=== PATIENT | male | born 1950 | race Caucasian/White ===

== ENCOUNTER 2018-08-09 11:20 | Emergency (ER) | payer MEDICARE, OTHER ==
[~2018-08-09] VITALS: Ht 182.9 cm; Wt 74.8 kg
[~2018-08-09 11:20] MED LIST: ALBU90OI61 INH; ASPI81CH PO; ATOR40TA PO; ATOR80 PO; Adult Low Dose81 MG PO; Aspirin325 MG PO; BREO ELLIPTA 21 EACH; BUDE6HFA INH; CLOP75 PO; Cleocin HCl300 MG PO; Flomax0.4 MG PO; GUAI600T33 PO; HYDACE10B PO; HYDMOR2 PO; HYDROCODONE-ACET5 ML PO; Kristalose20 GM PO; LEVO750 PO; LEVSOD125 PO; LISI5 PO; LISINOPRIL PO; LOSA50 PO; METHYLPHENIDATE; METO25; METO25 PO; METO25ER PO; METR500 PO; NAC600 MG; NITR.4SL SL; NITR.6SL SL; Norco 10-325 T1 EACH PO; OMEP10ER PO; OMEP20ER PO; OMEPRAZOLE MAGN20 MG; ONDA4 PO; OXYC10TA19 PO; Omeprazole20 M1 PO; PRED5 PO; PROM25 PO; Percocet 10-321 EACH PO; Percocet 5-3251 EACH PO; Prednisone20 MG PO; Prilosec40 MG PO; Prinivil10 MG PO; RXHYDMOR2 PO; RXPROM25 PO; SERT100; SERT25 PO; SERT50; SERT50 PO; SYNTHROID; TETR250 PO; TICA90TA; TICA90TA PO; Tussionex Penn480 ML PO; Ventolin Soln3 ML INH; Ventolin5 MG/1 ML; Zofran Odt4 MG SL; [UNRECOGNIZED DRUG - OTHER]
[2018-08-09 13:30] LABS: BASOPHILS ABSOLUTE AUTO 0.15 K/mm3 (0.00-0.23); BASOPHILS PERCENT AUTO 1 % (0-2); EOSINOPHILS ABSOLUTE AUTO 0.54 K/mm3 (0.00-0.68); EOSINOPHILS PERCENT AUTO 5 % (0-6); Hematocrit 45.9 % (37.0-53.0); Hemoglobin 15.1 g/dL (13.5-17.5); IMMATURE GRAN ABSOLUTE AUTO 0.04 K/mm3 (0.00-0.10); IMMATURE GRAN PERCENT AUTO 0 % (0-1); LYMPHOCYTES ABSOLUTE AUTO 1.55 K/mm3 (0.84-5.20); LYMPHOCYTES PERCENT AUTO 15 % (21-46); MONOCYTES ABSOLUTE AUTO 1.03 K/mm3 (0.16-1.47); MONOCYTES PERCENT AUTO 10 % (4-13); Mean Corpuscular HGB 31.5 pg (26.0-34.0); Mean Corpuscular HGB Conc 32.9 g/dL (31.5-36.5); Mean Corpuscular Volume 96 fL (80-100); Mean Platelet Volume 8.6 fL (9.1-12.4); NEUTROPHILS ABSOLUTE AUTO 7.41 K/mm3 (1.96-9.15); NEUTROPHILS PERCENT AUTO 69 % (41-73); Platelet Count 319 K/mm3 (150-400); RDW Coefficient Variation 13.2 % (11.7-14.2); RDW Standard Deviation 47.3 fL (35.1-46.3); White Blood Cell Count 10.72 K/mm3 (4.00-11.30)
[2018-08-09 13:50] LABS: Alanine Aminotransfer (ALT/SGP 28 U/L (12-78); Albumin, Blood 3.7 g/dL (3.4-5.0); Albumin/Globulin Ratio 1.1 (0.8-1.8); Alk Phos 103 U/L (50-136); Anion Gap 6 mmol/L (6-16); Aspartate Aminotrans (AST/SGOT 15 U/L (12-37); Bilirubin, Total 0.4 mg/dL (0.1-1.0); Blood Urea Nitrogen 13 mg/dL (8-24); Bun/Creatinine Ratio 16.8 (12.0-20.0); CO2, Blood 25 mmol/L (21-32); Calcium, Blood 8.4 mg/dL (8.5-10.1); Chloride, Blood 109 mmol/L (98-108); Creatinine, Blood 0.77 mg/dL (0.60-1.20); Globulin, Blood 3.5 g/dL (2.2-4.0); Glomerular Filtration Rate >60 (60-); Glucose, Blood 93 mg/dL (70-99); Sodium, Blood 140 mmol/L (136-145); Total Protein, Blood 7.2 g/dL (6.4-8.2); Troponin I <0.015 ng/mL (0.000-0.040)
[2018-08-09] MEDS ORDERED: BRILINTA90 MG PO (15:08)
[2018-08-09] MEDS ORDERED: BUDE6HFA INH (15:10)
[2018-08-09] MEDS ORDERED: TIOT18 INH (15:10)
== END 2018-08-09 19:28 | disposition home or self-care (01) ==
LOC: ER 11:20
PROVIDERS: Physician Assistant
DX: M47.816 Spondylosis without myelopathy or radiculopathy, lumbar region (principal); M48.061 Spinal stenosis, lumbar region without neurogenic claudication; M21.371 Foot drop, right foot; I25.2 Old myocardial infarction; F17.210 Nicotine dependence, cigarettes, uncomplicated; Z79.899 Other long term (current) drug therapy; Z79.82 Long term (current) use of aspirin
CPT/HCPCS: 36415; 70450; 71046; 72100; 72148; 73502; 80053; 84484; 85025; 93005; 93010; 99285-25

== ENCOUNTER 2018-10-12 05:52 | Emergency (ER) | payer MEDICARE, OTHER ==
[~2018-10-12] VITALS: Ht 182.9 cm; Wt 72.1 kg
[~2018-10-12 05:52] MED LIST changes: +BRILINTA90 MG PO; +TIOT18 INH
[2018-10-12 06:22] LABS: BASOPHILS ABSOLUTE AUTO 0.17 K/mm3 (0.00-0.23); BASOPHILS PERCENT AUTO 2 % (0-2); EOSINOPHILS ABSOLUTE AUTO 0.77 K/mm3 (0.00-0.68); EOSINOPHILS PERCENT AUTO 9 % (0-6); Hematocrit 42.3 % (37.0-53.0); Hemoglobin 13.8 g/dL (13.5-17.5); IMMATURE GRAN ABSOLUTE AUTO 0.06 K/mm3 (0.00-0.10); IMMATURE GRAN PERCENT AUTO 1 % (0-1); LYMPHOCYTES ABSOLUTE AUTO 1.75 K/mm3 (0.84-5.20); LYMPHOCYTES PERCENT AUTO 21 % (21-46); MONOCYTES ABSOLUTE AUTO 0.77 K/mm3 (0.16-1.47); MONOCYTES PERCENT AUTO 9 % (4-13); Mean Corpuscular HGB 30.8 pg (26.0-34.0); Mean Corpuscular HGB Conc 32.6 g/dL (31.5-36.5); Mean Corpuscular Volume 94 fL (80-100); Mean Platelet Volume 8.7 fL (9.1-12.4); NEUTROPHILS ABSOLUTE AUTO 4.99 K/mm3 (1.96-9.15); NEUTROPHILS PERCENT AUTO 59 % (41-73); Platelet Count 317 K/mm3 (150-400); RDW Coefficient Variation 13.2 % (11.7-14.2); Red Blood Cell Count 4.48 M/mm3 (4.30-5.90); White Blood Cell Count 8.51 K/mm3 (4.00-11.30)
[2018-10-12 06:36] LABS: Alanine Aminotransfer (ALT/SGP 37 U/L (12-78); Albumin, Blood 3.5 g/dL (3.4-5.0); Alk Phos 116 U/L (50-136); Anion Gap 8 mmol/L (6-16); Aspartate Aminotrans (AST/SGOT 36 U/L (12-37); Bilirubin, Total 0.3 mg/dL (0.1-1.0); Blood Urea Nitrogen 17 mg/dL (8-24); Bun/Creatinine Ratio 24.4 (12.0-20.0); CO2, Blood 25 mmol/L (21-32); Calcium, Blood 8.7 mg/dL (8.5-10.1); Chloride, Blood 109 mmol/L (98-108); Globulin, Blood 3.5 g/dL (2.2-4.0); Glomerular Filtration Rate >60 (60-); Glucose, Blood 112 mg/dL (70-99); Potassium, Blood 4.2 mmol/L (3.5-5.5); Sodium, Blood 142 mmol/L (136-145); Troponin I <0.015 ng/mL (0.000-0.040)
[2018-10-12] MEDS ORDERED: Norco 5-325 Ta1 EACH PO (07:00)
== END 2018-10-12 07:26 | disposition home or self-care (01) ==
LOC: ER 05:52
PROVIDERS: Emergency Medicine
DX: S20.211A Contusion of right front wall of thorax, initial encounter (principal); W18.30XA Fall on same level, unspecified, initial encounter; Z88.5 Allergy status to narcotic agent; Z88.8 Allergy status to other drugs, medicaments and biological substances; Z79.899 Other long term (current) drug therapy; Z79.82 Long term (current) use of aspirin; I25.2 Old myocardial infarction; I10 Essential (primary) hypertension; K21.9 Gastro-esophageal reflux disease without esophagitis; F17.200 Nicotine dependence, unspecified, uncomplicated
CPT/HCPCS: 71101; 80053; 83880; 84484; 85025; 94640; 96374; 96375; 99284-25; J1170; J2405

== ENCOUNTER 2018-10-18 15:49 | Inpatient (IN) | payer MEDICARE, OTHER ==
[~2018-10-18] VITALS: Ht 182.9 cm; Wt 71.9 kg
[~2018-10-18 15:49] MED LIST changes: -ASPI81CH PO; +Aspirin EC81 MG PO; -LEVSOD125 PO; +LEVSOD137 PO; -METO25; +Norco 5-325 Ta1 EACH PO; -SERT50 PO; -TIOT18 INH
[2018-10-18 16:28] LABS: BASOPHILS PERCENT AUTO 1 % (0-2); EOSINOPHILS ABSOLUTE AUTO 0.21 K/mm3 (0.00-0.68); EOSINOPHILS PERCENT AUTO 2 % (0-6); Hematocrit 43.1 % (37.0-53.0); Hemoglobin 14.6 g/dL (13.5-17.5); IMMATURE GRAN ABSOLUTE AUTO 0.05 K/mm3 (0.00-0.10); IMMATURE GRAN PERCENT AUTO 0 % (0-1); LYMPHOCYTES ABSOLUTE AUTO 1.49 K/mm3 (0.84-5.20); LYMPHOCYTES PERCENT AUTO 13 % (21-46); MONOCYTES ABSOLUTE AUTO 1.08 K/mm3 (0.16-1.47); MONOCYTES PERCENT AUTO 9 % (4-13); Mean Corpuscular HGB 31.5 pg (26.0-34.0); Mean Corpuscular HGB Conc 33.9 g/dL (31.5-36.5); Mean Corpuscular Volume 93 fL (80-100); Mean Platelet Volume 8.8 fL (9.1-12.4); NEUTROPHILS ABSOLUTE AUTO 8.64 K/mm3 (1.96-9.15); NEUTROPHILS PERCENT AUTO 75 % (41-73); Platelet Count 378 K/mm3 (150-400); RDW Coefficient Variation 12.8 % (11.7-14.2); RDW Standard Deviation 43.8 fL (35.1-46.3); Red Blood Cell Count 4.64 M/mm3 (4.30-5.90); White Blood Cell Count 11.57 K/mm3 (4.00-11.30)
[2018-10-18] MEDS ORDERED: ATOR40TA PO (16:34)
[2018-10-18 17:05] LABS: Alanine Aminotransfer (ALT/SGP 24 U/L (12-78); Albumin, Blood 3.4 g/dL (3.4-5.0); Albumin/Globulin Ratio 0.9 (0.8-1.8); Alk Phos 112 U/L (50-136); Anion Gap 6 mmol/L (6-16); Aspartate Aminotrans (AST/SGOT 19 U/L (12-37); Bilirubin, Total 0.5 mg/dL (0.1-1.0); Blood Urea Nitrogen 19 mg/dL (8-24); Bun/Creatinine Ratio 25.9 (12.0-20.0); CO2, Blood 28 mmol/L (21-32); Chloride, Blood 100 mmol/L (98-108); Creatinine, Blood 0.73 mg/dL (0.60-1.20); Globulin, Blood 3.7 g/dL (2.2-4.0); Glomerular Filtration Rate >60 (60-); Glucose, Blood 109 mg/dL (70-99); Potassium, Blood 3.7 mmol/L (3.5-5.5); Sodium, Blood 134 mmol/L (136-145); Total Protein, Blood 7.1 g/dL (6.4-8.2); Troponin I <0.015 ng/mL (0.000-0.040)
[2018-10-18 20:22] LABS: Source, Urine Clean Catch
[2018-10-18 20:36] LABS: Bilirubin, Urine Neg (Neg); Blood, Urine 3+ (Neg); Glucose Qualitative, Urine Neg (Neg); Ketones, Urine 2+ (Neg); Leukocyte Esterase, Urine 1+ (Neg); Nitrite, Urine Neg (Neg); Protein, Urine 2+ (Neg); Specific Gravity, Urine 1.025 (1.003-1.022); Urobilinogen, Urine NORM (Normal)
[2018-10-18 20:40] LABS: Appearance, Urine Clear (Clear); Color, Urine Yellow (P-Yellow)
[2018-10-18 20:50] LABS: U Amphetamine Screen Not Detected; U Barbituate Screen Not Detected; U Benzodiazapine Screen Not Detected; U Buprenorphine Screen Not Detected; U Cannabinoids Screen Not Detected; U Cocaine Screen Not Detected; U Methamphetamine Screen Not Detected; U Opiates Screen DETECTED; U Oxycodone Screen Not Detected; U Phencyclidine Screen Not Detected; U Propoxyphene Screen Not Detected
[2018-10-18 20:51] LABS: Bacteria Many /hpf; Mucus Mod (0-Heavy); Squamous Epithelial Cells Few /hpf (Few); U Methadone Screen Not Detected; White Blood Cells, Urine 0-2 /hpf (0-5)
[2018-10-18] MEDS ORDERED: SERT50 PO (21:09)
[2018-10-18] MEDS ORDERED: TIOT18 INH (21:26)
[2018-10-19] MEDS ORDERED: OXYC10TA19 PO (01:30)
--- NOTE | 2018-10-19 01:30 | NUR ---
PCU ADMIT PT BROUGHT TO PCU [id number] FROM THE ER BY GONZALO @ 0110. PT SLID OVER FROM ER RBALDWIN TO HOSPITAL BED BY 4 STAFF MEMBERS. PT A&O X4. LUNG SOUNDS COARSE T/O. SPO2 > 92% ON 3L NC. MONITOR SHOWS ST, HR 120'S. PT C/O NAUSEA UPON ARRIVAL TO UNIT. PT GIVEN PAIN MEDICATION & ZOFRAN IN ER PRIOR TO ARRIVING TO UNIT. NS GTT & AZITHROMYCIN INFUSING PER ORDERS. WILL CONTINUE TO MONITOR AND PROVIDE CARE.
[2018-10-19] MEDS ORDERED: Norco 10-325 T1 EACH PO (01:32)
[2018-10-19 01:34] LABS: Hematocrit 42.2 % (37.0-53.0); Hemoglobin 14.3 g/dL (13.5-17.5); Mean Corpuscular HGB 31.4 pg (26.0-34.0); Mean Corpuscular HGB Conc 33.9 g/dL (31.5-36.5); Mean Corpuscular Volume 93 fL (80-100); Mean Platelet Volume 8.9 fL (9.1-12.4); Platelet Count 345 K/mm3 (150-400); RDW Coefficient Variation 12.7 % (11.7-14.2); Red Blood Cell Count 4.56 M/mm3 (4.30-5.90); White Blood Cell Count 12.31 K/mm3 (4.00-11.30)
[2018-10-19 01:50] LABS: Anion Gap 9 mmol/L (6-16); Blood Urea Nitrogen 18 mg/dL (8-24); Bun/Creatinine Ratio 26.9 (12.0-20.0); CO2, Blood 23 mmol/L (21-32); Calcium, Blood 8.5 mg/dL (8.5-10.1); Chloride, Blood 103 mmol/L (98-108); Creatinine, Blood 0.67 mg/dL (0.60-1.20); Glomerular Filtration Rate >60 (60-); Glucose, Blood 148 mg/dL (70-99); Potassium, Blood 4.1 mmol/L (3.5-5.5); Sodium, Blood 135 mmol/L (136-145)
[2018-10-19 03:30] LABS: Adenovirus Not Detected (NOT DETECT); Bordetella pertussis Not Detected (NOT DETECT); Chlamydophila pneumoniae Not Detected (NOT DETECT); Coronavirus 229E Not Detected (NOT DETECT); Coronavirus HKU1 Not Detected (NOT DETECT); Coronavirus NL63 Not Detected (NOT DETECT); Coronavirus OC43 Not Detected (NOT DETECT); Human Metapneumovirus Not Detected (NOT DETECT); Human Rhinovirus/Enterovirus Not Detected (NOT DETECT); Influenza A Not Detected (NOT DETECT); Influenza A/2009-H1 Not Detected (NOT DETECT); Influenza A/H1 Not Detected (NOT DETECT); Influenza A/H3 Not Detected (NOT DETECT); Influenza B Not Detected (NOT DETECT); Mycoplasma pneumoniae Not Detected (NOT DETECT); Parainfluenza Virus 1 Not Detected (NOT DETECT); Parainfluenza Virus 2 Not Detected (NOT DETECT); Parainfluenza Virus 3 Not Detected (NOT DETECT); Parainfluenza Virus 4 Not Detected (NOT DETECT); Respiratory Syncytial Virus Not Detected (NOT DETECT)
--- NOTE | 2018-10-19 05:42 | NUR ---
SHIFT SUMMARY PT A&O X4. LUNG SOUNDS COARSE T/O. SPO2 > 92%, TITRATED FROM 3L NC TO 2L NC THIS SHIFT. MONITOR SHOWS ST, HR 100-120'S. PT C/O NAUSEAU & DRY HEAVING UPON ADMISSION W/ REPORT OF NOT HAVING EATEN IN THE LAST 3 DAYS. PT DENIES ABD PAIN. BOWEL TONES HYPOACTIVE. PT C/O PAIN IN L SHOULDER BLADE THAT PT REPORTS D/T FALL AT HOME. PT REPORTS DIFFICULTY AMBULATING D/T R DROP FOOT. LOWER R LEG RED AND WARM. PT ADVISED TO USE CALL LIGHT FOR STAFF ASSIST OOB. RESP PANEL SWAB DONE. AWAITING BM TO SEND STOOL SAMPLE. NS GTT INFUSING PER ORDERS. WILL CONTINUE TO MONITOR AND PROVIDE CARE UNTIL REPORT OFF TO DAY SHIFT RN.
--- NOTE | 2018-10-19 14:50 | NUR ---
Patient is lying in bed and alert. Patient easily shares about leaving home at 15, his tour in [place], his family history and his thoughts about christian. Patient stated that he is up for the challenge of rehab for his leg and wonders if he might have had a stroke. Patient did not express any spiritual or emotional issues. I listened empathically, provided companionship, normalized patient's experience and encouraged self care (and patience). Patient responded well and showed signs of an elevated mood.
--- NOTE | 2018-10-19 19:18 | NUR ---
SHIFT SUMMARY PT ALERT AND ORIENTED. VS STABLE. 02 SATS >92% ON 2L NC. PT HAD MRI OF HEAD TODAY AND ECHO. LS COARSE THROUGHOUT. SPEECH THERAPY EVALUATED PT FOR ASPIRATION RISK. NEW PRECAUTIONS IN PLACE. PT HAS NOT HAD ANY BM THIS SHIFT OR VOMITTING. PT STILL COMPLAINS OF NAUSEA INTERMITTENTLY. REPORT GIVEN TO CARDIOLOGIST RN.
--- NOTE | 2018-10-19 19:46 | NUR ---
CARE ASSUMPTION PT A&O X4. LUNG SOUNDS CLEAR. SPO2 > 92% ON 1L NC. BREATHING TX BEING DONE AT THIS TIME. PT C/O PAIN IN L SHOULDER BLADE AND LOWER BACK. PT REPORTS PAIN TO BE A RESULT FROM FALLING AT HOME. PAIN MEDICATION PROVIDED PER EMAR AND PT REPOSITIONED FOR COMFORT. WILL CONTINUE TO MONITOR AND PROVIDE CARE.
[2018-10-20 04:23] LABS: CHOL/HDL RATIO 2.3; Cholesterol 96 mg/dL (50-200); HDL Cholesterol 42 mg/dL (>39); LDL/HDL RATIO 0.8; Low Density Lipoprotein Chol 35 mg/dL (0-110); Triglycerides 93 mg/dL (30-160); Very Low Density Lipoprot Chol 18 mg/dL (6-32)
--- NOTE | 2018-10-20 05:22 | NUR ---
SHIFT SUMMARY PT A&O X4. VSS. NO EVENTS OVERNIGHT. LUNG SOUNDS CLEAR T/O. SPO2 > 92% ON 1L NC. MONITOR SHOWS NSR/ST, HR 90-120. NO EPISODES OF NAUSEA, VOMITING, OR DIARRHEA THIS SHIFT. HYPOACTIVE BOWEL TONES. PT REPORTS MILD ABD PAIN ACROSS ABD, STATING PAIN TO BE "A LITTLE BIT". PT ALSO C/O PAIN IN L SHOULDER BLADE AND BACK FROM FALLING AT HOME. PT VERY WEAK. PT ATTEMPT TO SIT AT EDGE OF BED DURING SHIFT W/ INABILITY TO SIT UPRIGHT W/OUT HOLDING ON TO SIDE RAIL. Q2H REPOSITIONING BY STAFF. WILL CONTINUE TO MONITOR AND PROVIDE CARE UNTIL REPORT OFF TO DAY SHIFT RN.
--- NOTE | 2018-10-20 08:10 | NUR ---
RECEIVED REPORT AND ASSUMED CARE OF PATIENT. HE IS ALERT AND ORIENTED, PLEASANT AFFECT AND DEMEANOR. PT ABLE TO EXPRESS HIS NEED APPROPRIATELY AND IS ANXIOUS TO GET BACK HOME. HE EXPRESSED HAPPINESS THAT HE WILL HAVE HOME HEALTH TO ASSIST HIM TO MANAGE HIS HEALTH AND CHRONIC/ACUTE CONDITIONS. WILL CONTINUE TO MONITOR AND PROCESS D/C WHEN IT IS ORDERED.
[2018-10-20] MEDS ORDERED: ALBU3IS INH (10:03)
[2018-10-20] MEDS ORDERED: PANT40 PO (10:03)
[2018-10-20] MEDS ORDERED: DELTASONE20 MG PO (10:05)
[2018-10-20] MEDS ORDERED: MIRALAX17 GM PO (10:06)
--- NOTE | 2018-10-20 11:55 | NUR ---
PT HOME HEALTH SET UP AND VERIFIED WITH LAPELER. EXPLAINED MEDICATION LIST AT DISCHARGE AND WENT OVER ANY QUESTIONS OR NEW MEDICATIONS. PT DISCHARGED, PICKED UP BY PRIVATE CAR.
== END 2018-10-20 11:55 | disposition home health service (06) | DRG 190 ==
LOC: ER 15:49 → PCU 23:39
PROVIDERS: Emergency Medicine; Internal Medicine; Nurse Practitioner Acute Care; ADMIT Internal Medicine
DX: J44.1 Chronic obstructive pulmonary disease with (acute) exacerbation (principal); J96.21 Acute and chronic respiratory failure with hypoxia; I25.2 Old myocardial infarction; Z85.46 Personal history of malignant neoplasm of prostate; Z90.79 Acquired absence of other genital organ(s); Z95.5 Presence of coronary angioplasty implant and graft; E03.9 Hypothyroidism, unspecified; I10 Essential (primary) hypertension; K21.9 Gastro-esophageal reflux disease without esophagitis; E86.0 Dehydration; E78.5 Hyperlipidemia, unspecified; F32.9 Major depressive disorder, single episode, unspecified; Z79.82 Long term (current) use of aspirin; F17.210 Nicotine dependence, cigarettes, uncomplicated; I25.10 Atherosclerotic heart disease of native coronary artery without angina pectoris; R13.12 Dysphagia, oropharyngeal phase; Z95.1 Presence of aortocoronary bypass graft; K52.9 Noninfective gastroenteritis and colitis, unspecified
CPT/HCPCS: 36415; 70551; 71046; 74176; 80048; 80053; 80061; 81001; 83690; 83735; 83880; 84145; 84443; 84484; 85025; 85027; 87040; 87086; 87486; 87581; 87633; 87798; 92610; 93005; 93010; 93306; 93880; 93971; 94640; 94760; 94762; 96361; 96365; 96375; 96376; 97110; 97162; 97166; 97530; 97535; 99285-25; A9270-GY; J0153; J0456; J0696; J1650; J2405; J2930; J7030; J7050; J7512

== ENCOUNTER 2018-11-01 14:57 | Emergency (ER) | payer MEDICARE, OTHER ==
[~2018-11-01] VITALS: Ht 182.9 cm; Wt 65.8 kg
[~2018-11-01 14:57] MED LIST changes: +ALBU3IS INH; +DELTASONE20 MG PO; +MIRALAX17 GM PO; +PANT40 PO; +SERT50 PO; +TIOT18 INH
[2018-11-01 15:43] LABS: BASOPHILS PERCENT AUTO 1 % (0-2); EOSINOPHILS ABSOLUTE AUTO 0.61 K/mm3 (0.00-0.68); EOSINOPHILS PERCENT AUTO 5 % (0-6); Hematocrit 42.1 % (37.0-53.0); Hemoglobin 13.5 g/dL (13.5-17.5); IMMATURE GRAN ABSOLUTE AUTO 0.08 K/mm3 (0.00-0.10); IMMATURE GRAN PERCENT AUTO 1 % (0-1); LYMPHOCYTES PERCENT AUTO 14 % (21-46); MONOCYTES ABSOLUTE AUTO 0.97 K/mm3 (0.16-1.47); MONOCYTES PERCENT AUTO 8 % (4-13); Mean Corpuscular HGB 31.2 pg (26.0-34.0); Mean Corpuscular HGB Conc 32.1 g/dL (31.5-36.5); Mean Platelet Volume 8.4 fL (9.1-12.4); NEUTROPHILS ABSOLUTE AUTO 8.98 K/mm3 (1.96-9.15); NEUTROPHILS PERCENT AUTO 72 % (41-73); Platelet Count 475 K/mm3 (150-400); RDW Coefficient Variation 13.6 % (11.7-14.2); Red Blood Cell Count 4.33 M/mm3 (4.30-5.90); White Blood Cell Count 12.54 K/mm3 (4.00-11.30)
[2018-11-01 15:44] LABS: Mean Corpuscular Volume 97 fL (80-100)
[2018-11-01 15:57] LABS: Alanine Aminotransfer (ALT/SGP 28 U/L (12-78); Albumin, Blood 3.4 g/dL (3.4-5.0); Albumin/Globulin Ratio 0.9 (0.8-1.8); Alk Phos 113 U/L (50-136); Anion Gap 5 mmol/L (6-16); Aspartate Aminotrans (AST/SGOT 14 U/L (12-37); Bilirubin, Total 0.2 mg/dL (0.1-1.0); Blood Urea Nitrogen 23 mg/dL (8-24); Bun/Creatinine Ratio 31.1 (12.0-20.0); CO2, Blood 26 mmol/L (21-32); Calcium, Blood 9.1 mg/dL (8.5-10.1); Chloride, Blood 107 mmol/L (98-108); Creatinine, Blood 0.74 mg/dL (0.60-1.20); Globulin, Blood 3.6 g/dL (2.2-4.0); Glomerular Filtration Rate >60 (60-); Glucose, Blood 111 mg/dL (70-99); Potassium, Blood 4.2 mmol/L (3.5-5.5); Sodium, Blood 138 mmol/L (136-145)
[2018-11-01 17:18] LABS: Source, Urine Clean Catch
[2018-11-01 17:29] LABS: Bilirubin, Urine Neg (Neg); Blood, Urine 4+ (Neg); Glucose Qualitative, Urine Neg (Neg); Ketones, Urine Neg (Neg); Leukocyte Esterase, Urine Neg (Neg); Nitrite, Urine Neg (Neg); Protein, Urine Neg (Neg); Specific Gravity, Urine 1.025 (1.003-1.022); Urobilinogen, Urine NORM (Normal)
[2018-11-01 17:49] LABS: Appearance, Urine Hazy (Clear); Color, Urine Yellow (P-Yellow)
[2018-11-01 17:50] LABS: Bacteria Not Seen /hpf; Red Blood Cells, Urine 25-50 /hpf (0-2); Squamous Epithelial Cells Not Seen /hpf (Few); White Blood Cells, Urine 0-2 /hpf (0-5)
== END 2018-11-01 20:45 | disposition home or self-care (01) ==
LOC: ER 14:57
PROVIDERS: Physician Assistant
DX: R60.0 Localized edema (principal); J44.9 Chronic obstructive pulmonary disease, unspecified; R53.1 Weakness; E03.9 Hypothyroidism, unspecified; E78.5 Hyperlipidemia, unspecified; I10 Essential (primary) hypertension; F17.210 Nicotine dependence, cigarettes, uncomplicated; Z88.5 Allergy status to narcotic agent; Z79.899 Other long term (current) drug therapy
CPT/HCPCS: 36415; 72131; 80053; 81001; 83880; 85025; 94664; 98960; 99285-25

== ENCOUNTER 2019-03-02 06:09 | Inpatient (IN) | payer MEDICARE, OTHER ==
[~2019-03-02] VITALS: Ht 182.9 cm; Wt 62.6 kg
[~2019-03-02 06:09] MED LIST changes: +Augmentin 875-1 EACH PO
[2019-03-02 06:25] LABS: BASOPHILS ABSOLUTE AUTO 0.12 K/mm3 (0.00-0.23); BASOPHILS PERCENT AUTO 1 % (0-2); EOSINOPHILS ABSOLUTE AUTO 0.43 K/mm3 (0.00-0.68); EOSINOPHILS PERCENT AUTO 3 % (0-6); Hematocrit 37.1 % (37.0-53.0); Hemoglobin 11.8 g/dL (13.5-17.5); IMMATURE GRAN ABSOLUTE AUTO 0.06 K/mm3 (0.00-0.10); IMMATURE GRAN PERCENT AUTO 1 % (0-1); LYMPHOCYTES ABSOLUTE AUTO 1.37 K/mm3 (0.84-5.20); LYMPHOCYTES PERCENT AUTO 11 % (21-46); MONOCYTES ABSOLUTE AUTO 0.89 K/mm3 (0.16-1.47); MONOCYTES PERCENT AUTO 7 % (4-13); Mean Corpuscular HGB 28.9 pg (26.0-34.0); Mean Corpuscular HGB Conc 31.8 g/dL (31.5-36.5); Mean Corpuscular Volume 91 fL (80-100); Mean Platelet Volume 8.5 fL (9.1-12.4); NEUTROPHILS ABSOLUTE AUTO 9.99 K/mm3 (1.96-9.15); NEUTROPHILS PERCENT AUTO 78 % (41-73); Platelet Count 398 K/mm3 (150-400); RDW Coefficient Variation 14.5 % (11.7-14.2); RDW Standard Deviation 48.1 fL (35.1-46.3); Red Blood Cell Count 4.09 M/mm3 (4.30-5.90); White Blood Cell Count 12.86 K/mm3 (4.00-11.30)
[2019-03-02] MEDS ORDERED: LINZESS145 MCG PO (06:35)
[2019-03-02] MEDS ORDERED: SERT25 PO (06:35)
[2019-03-02] MEDS ORDERED: HYDR1TAB94 PO ×2 (06:36)
[2019-03-02] MEDS ORDERED: EUTHYROX150 MCG PO (06:37)
[2019-03-02] MEDS ORDERED: METO25 PO (06:38)
[2019-03-02] MEDS ORDERED: Prinivil10 MG PO (06:38)
[2019-03-02] MEDS ORDERED: Florastor250 MG PO (06:38)
[2019-03-02] MEDS ORDERED: GUAI600T33 PO (06:39)
[2019-03-02] MEDS ORDERED: FURO20 PO (06:39)
[2019-03-02] MEDS ORDERED: PANT40 PO (06:40)
[2019-03-02] MEDS ORDERED: TIOT18 INH (06:40)
[2019-03-02] MEDS ORDERED: TICA90TA PO (06:41)
[2019-03-02] MEDS ORDERED: BUDE10.22 INH (06:41)
[2019-03-02] MEDS ORDERED: ATOR40TA PO (06:42)
[2019-03-02] MEDS ORDERED: ALBU3IS NEB (06:42)
[2019-03-02 06:52] LABS: Alanine Aminotransfer (ALT/SGP 25 U/L (12-78); Albumin, Blood 3.3 g/dL (3.4-5.0); Albumin/Globulin Ratio 0.8 (0.8-1.8); Alk Phos 111 U/L (50-136); Anion Gap 5 mmol/L (6-16); Aspartate Aminotrans (AST/SGOT 16 U/L (12-37); Bilirubin, Total 0.2 mg/dL (0.1-1.0); Blood Urea Nitrogen 17 mg/dL (8-24); Bun/Creatinine Ratio 36.1 (12.0-20.0); CO2, Blood 28 mmol/L (21-32); Calcium, Blood 9.2 mg/dL (8.5-10.1); Chloride, Blood 104 mmol/L (98-108); Creatinine, Blood 0.47 mg/dL (0.60-1.20); Globulin, Blood 4.1 g/dL (2.2-4.0); Glomerular Filtration Rate >60 (60-); Glucose, Blood 112 mg/dL (70-99); Potassium, Blood 4.3 mmol/L (3.5-5.5); Sodium, Blood 137 mmol/L (136-145); Total Protein, Blood 7.4 g/dL (6.4-8.2); Troponin I <0.015 ng/mL (0.000-0.040)
--- NOTE | 2019-03-02 08:57 | NUR ---
Telephone report received from Jozef Kuhn RN, at this time. States that the pt will have a chest CT to rule out pulmonary embolism before coming to PCU 13.
[2019-03-02 09:52] LABS: PCO2 Arterial 41.9 mmHg (35-45); PO2 Arterial 73.9 mmHg (80-100); pH Blood Arterial 7.45 (7.35-7.45)
[2019-03-02] MEDS ORDERED: MIRALAX17 GM PO (12:33)
[2019-03-02] MEDS ORDERED: Colace250 MG PO (12:33)
[2019-03-02] MEDS ORDERED: BISA5EC PO (12:34)
[2019-03-02] MEDS ORDERED: CITRATE OF MAG296 ML PO (12:36)
[2019-03-02] MEDS ORDERED: CEFU250T47 PO (12:37)
[2019-03-02] MEDS ORDERED: CVS DISPOSABLE399 ML PR (12:38)
[2019-03-02] MEDS ORDERED: THERA1 EACH PO (12:39)
--- NOTE | 2019-03-02 13:06 | NUR ---
The patient arrived this morning from the ED, and was transferred to the bed from the stretcher. He is essentially a quadraplegic, since earlier this year, he tells me that he has had 3 surgeries on his back, a sacral fracture from a fall, and infection from back surgery, requiring another surgery. His girlfriend Cydney told me over the phone that she has been taking care of him, and that he has not been able to use his extremities due to possible nerve damage from surgery. Condom cath was placed as the pt is bed fast.
--- NOTE | 2019-03-02 14:25 | NUR ---
Ray said that he had been calling to have the bipap taken off. It was taken off and nasal cannula placed. speech therapist Heather Hooks here to evaluate the patient.
[2019-03-02 16:02] LABS: Adenovirus Not Detected (NOT DETECT); Bordetella pertussis Not Detected (NOT DETECT); Chlamydophila pneumoniae Not Detected (NOT DETECT); Coronavirus 229E Not Detected (NOT DETECT); Coronavirus HKU1 Not Detected (NOT DETECT); Coronavirus NL63 Not Detected (NOT DETECT); Coronavirus OC43 Not Detected (NOT DETECT); Human Metapneumovirus Not Detected (NOT DETECT); Human Rhinovirus/Enterovirus Not Detected (NOT DETECT); Influenza A Not Detected (NOT DETECT); Influenza A/2009-H1 Not Detected (NOT DETECT); Influenza A/H1 Not Detected (NOT DETECT); Influenza A/H3 Not Detected (NOT DETECT); Influenza B Not Detected (NOT DETECT); Mycoplasma pneumoniae Not Detected (NOT DETECT); Parainfluenza Virus 1 Not Detected (NOT DETECT); Parainfluenza Virus 2 Not Detected (NOT DETECT); Parainfluenza Virus 3 Not Detected (NOT DETECT); Parainfluenza Virus 4 Not Detected (NOT DETECT); Respiratory Syncytial Virus Not Detected (NOT DETECT)
--- NOTE | 2019-03-02 16:45 | NUR ---
Simon had a bruised skin tear on his third digit of the left hand when he arrived from the ED. He tells me that "the driver material handler did that". At this time, it is bleeding from his use of the call light. Cleansed and covered with mepilex dressing.
--- NOTE | 2019-03-02 17:41 | NUR ---
The pt stated that he did not get enough pain relief with 5 mg NOrco; I gave him 10 mg the second time and he is sleeping now. Wearing bipap.
--- NOTE | 2019-03-02 19:30 | NUR ---
Pt transferred from ICU today, and has been pleasantly conversant, sat on the side of the bed to eat dinner. NO complaints of pain or discomfort. The pt was surprised that he had MRSA in his wound, but relieved that he is getting antibiotics to treat the infections. Wearing oxgyen by nasal cannula and CPAP while sleeping. Normal sinus rhythm since transfer from ICU this afternoon. Using the urinal with assistance.
--- NOTE | 2019-03-03 00:26 | NUR ---
Assumed care of pt at approx 1900; pt sitting in bed, HOB elevated. Pt states to this RN about pain located in back, sacrum, and shoulders. Pt unable to take pain medications until 2100. Pt agreeable. See shift assessment for detailed systems assessment. VSS. Pt in no apparent sign of distress, breathing easy and unlabored. Pt repositioned to comfort q2. Pt compliant and cooperative with care. Will continue to monitor and assess. Soft touch call light in reach and pt able to make needs known with soft touch call light.
[2019-03-03 04:08] LABS: BASOPHILS ABSOLUTE AUTO 0.11 K/mm3 (0.00-0.23); BASOPHILS PERCENT AUTO 1 % (0-2); EOSINOPHILS ABSOLUTE AUTO 0.34 K/mm3 (0.00-0.68); EOSINOPHILS PERCENT AUTO 4 % (0-6); Hematocrit 34.9 % (37.0-53.0); Hemoglobin 10.9 g/dL (13.5-17.5); IMMATURE GRAN ABSOLUTE AUTO 0.03 K/mm3 (0.00-0.10); IMMATURE GRAN PERCENT AUTO 0 % (0-1); LYMPHOCYTES PERCENT AUTO 10 % (21-46); MONOCYTES PERCENT AUTO 8 % (4-13); Mean Corpuscular HGB 29.1 pg (26.0-34.0); Mean Corpuscular HGB Conc 31.2 g/dL (31.5-36.5); Mean Corpuscular Volume 93 fL (80-100); Mean Platelet Volume 8.8 fL (9.1-12.4); NEUTROPHILS ABSOLUTE AUTO 6.96 K/mm3 (1.96-9.15); NEUTROPHILS PERCENT AUTO 77 % (41-73); Platelet Count 352 K/mm3 (150-400); RDW Coefficient Variation 14.6 % (11.7-14.2); RDW Standard Deviation 50.1 fL (35.1-46.3); Red Blood Cell Count 3.75 M/mm3 (4.30-5.90); White Blood Cell Count 9.04 K/mm3 (4.00-11.30)
[2019-03-03 04:26] LABS: Anion Gap 7 mmol/L (6-16); Blood Urea Nitrogen 13 mg/dL (8-24); Bun/Creatinine Ratio 32.3 (12.0-20.0); CO2, Blood 27 mmol/L (21-32); Calcium, Blood 8.9 mg/dL (8.5-10.1); Chloride, Blood 106 mmol/L (98-108); Glomerular Filtration Rate >60 (60-); Glucose, Blood 94 mg/dL (70-99); Sodium, Blood 140 mmol/L (136-145)
--- NOTE | 2019-03-03 05:05 | NUR ---
Shift Summary No acute changes this shift. VSS. denies SOB, no worsening lung sounds auscultated, no increase in o2 demand this shift. Pt denies need for BIPAP; breathing easy and unlabored on NC. Pt sleeping on and off throughout shift. Medicated x2 for pain per orders. Pt calls appropriately with soft touch call light. Alert and oriented. No events on tele. Condom cath in place and draining clear yellow urine. NS running at 100ml.hr per orders. Medications given whole with applesauce per orders. Oral care provided q4 with suction swabs. No acute changes from initial shift assessment. Will continue to monitor and provide care per orders and protocol until day RN assumes care.
--- NOTE | 2019-03-03 07:30 | NUR ---
ASSUMED CARE OF PATIENT; SEE ASSESSMENT CHARTING FOR DETAILS. PATIENT C/O GENERALIZED PAIN (SHOULDERS, BACK, BUTTOCK AND ALL EXTREMITIES); WILL MEDICATE WITH PO PAIN PILLS. LUNGS COARSE T/O; COUGH WEAK AND MOIST. R.T. ARRIVED AND WORKING ON UDN TX AND CPT VEST; PATIENT NOT TOLERATING VEST WELL; BIOX STABLE BUT HE FEELS DYSPNEIC. N.T. SX DONE BY R.T. WITH MOD TO LARGE AMOUNTS OF SPUTUM (TINGED RED, YELLOW, WHITE). RN PERFORMED ORAL CARE AND YANKAUER SX ALSO. CONDOM CATH IN PLACE AND DRAINING MOD. TO LARGE AMOUNTS OF MED. YELLOW URINE. FED BY RN D/T UNABLE TO FEED SELF D/T QUADRIPLEGIC-TYPE STATUS. NO DIFFICULTY SWALLOWING. DRESSING D/I TO L HAND. ROM TO FEET/HANDS. HEELS FLOATING WITH USE OF PILLOWS. IVF INFUSING WITH NS AT 100ML/HR.
--- NOTE | 2019-03-03 09:30 | NUR ---
DR. DECKER HERE; PLANS TO CHANGE PATIENT TO MED. FLOOR STATUS WITHOUT TELEMETRY. SPEECH, O.T. AND P.T. IN/OUT WORKING WITH PATIENT; SEE THERAPY NOTES.
--- NOTE | 2019-03-03 11:47 | NUR ---
CHANGED TO MEDICAL STATUS; NO TELEMETRY.
--- NOTE | 2019-03-03 14:32 | NUR ---
Patient is lying in bed and alet. 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 Patient tells me that as long as there is light he will fight like crazy to overcome but as soon as it goes out in terms of not being able to gain any mobility of strength then he will be out of the fight. I listen empathically, normalize patient's experience and provide companionship and prayer. Patient response well and displays evidence of an elevated mood.
--- NOTE | 2019-03-03 18:05 | NUR ---
SUMMARY: ORAL PAIN MED GIVEN EVERY 4-6 HOURS FOR GENERALIZED JOINT DISCOMFORT. LOW GRADE FEVER T/O DAY; AND PATIENT FEELING HOT THIS EVENING; COOLED DOWN AFTER PAIN MED. GIVEN. THERAPIES WORKED AGGRESIVELY WITH PATIENT AND WANT RN'S TO DO PASSIVE ROM TO UPPER AND LOWER EXTREM. SEVERAL TIMES PER SHIFT. NO ACUTE PROBLEMS T/O DAY; IVF'S DC'D; RN GIVING THICKENED WATER, JELLO ETC TO HELP WITH MAINTAINING HYDRATION.
[2019-03-04 03:56] LABS: BASOPHILS ABSOLUTE AUTO 0.09 K/mm3 (0.00-0.23); BASOPHILS PERCENT AUTO 1 % (0-2); EOSINOPHILS ABSOLUTE AUTO 0.36 K/mm3 (0.00-0.68); EOSINOPHILS PERCENT AUTO 4 % (0-6); Hematocrit 34.1 % (37.0-53.0); Hemoglobin 10.9 g/dL (13.5-17.5); IMMATURE GRAN ABSOLUTE AUTO 0.05 K/mm3 (0.00-0.10); IMMATURE GRAN PERCENT AUTO 1 % (0-1); LYMPHOCYTES ABSOLUTE AUTO 0.85 K/mm3 (0.84-5.20); LYMPHOCYTES PERCENT AUTO 9 % (21-46); MONOCYTES ABSOLUTE AUTO 0.74 K/mm3 (0.16-1.47); MONOCYTES PERCENT AUTO 8 % (4-13); Mean Corpuscular HGB 29.2 pg (26.0-34.0); Mean Corpuscular Volume 91 fL (80-100); Mean Platelet Volume 8.8 fL (9.1-12.4); NEUTROPHILS ABSOLUTE AUTO 7.53 K/mm3 (1.96-9.15); NEUTROPHILS PERCENT AUTO 78 % (41-73); Platelet Count 327 K/mm3 (150-400); RDW Coefficient Variation 14.6 % (11.7-14.2); RDW Standard Deviation 48.8 fL (35.1-46.3); Red Blood Cell Count 3.73 M/mm3 (4.30-5.90); White Blood Cell Count 9.62 K/mm3 (4.00-11.30)
[2019-03-04 04:41] LABS: Albumin, Blood 2.8 g/dL (3.4-5.0); Anion Gap 5 mmol/L (6-16); Blood Urea Nitrogen 14 mg/dL (8-24); Bun/Creatinine Ratio 31.9 (12.0-20.0); CO2, Blood 29 mmol/L (21-32); Calcium, Blood 9.2 mg/dL (8.5-10.1); Chloride, Blood 103 mmol/L (98-108); Creatinine, Blood 0.44 mg/dL (0.60-1.20); Glomerular Filtration Rate >60 (60-); Glucose, Blood 99 mg/dL (70-99); Phosphorus, Blood 3.3 mg/dL (2.5-4.9); Potassium, Blood 3.8 mmol/L (3.5-5.5); Sodium, Blood 137 mmol/L (136-145)
--- NOTE | 2019-03-04 04:58 | NUR ---
SHIFT SUMMARY: PATIENT DID WELL THIS SHIFT, VSS, CALL LIGHT WITHIN REACH, PAIN MEDICATIONS=SEE EMAR, BED LOW AND LOCKED.
--- NOTE | 2019-03-04 08:00 | NUR ---
pt laying in bed awake a/ox3, pleasant and cooperative with care, follows commands well, denies pain, states he slept well, no complaints, lungs are a bit course t/o, resp even and unlabord, is currently on 2 liters 02 via n/c, resp, occ cough, hrr, no edema noted to b/l le, ppp+2, cap refill <3sec, vs stable, iv sites are clear and patent btx4, abd flat soft nontender, voids via condom cath, skin has a red sacrum, and skin tear to left hand, other be c/w/d, augusta sanchez, call light in reach.
--- NOTE | 2019-03-04 13:30 | NUR ---
pt has had a bed bath, he was given a suppository, vs stable, has needed pain meds regularly, seems frustrated with condition. call light in reach.
--- NOTE | 2019-03-04 17:59 | NUR ---
pt worked with P.T.this late afternoon, we got him to standing position but he is unable to move his legs. we were able to transfer him to a chair, then he was moved to a recliner. he sat up for a few hrs then was assisted back to bed by standing him up and moving the chair away and moving the bed to him, he was positioned back in bed and feet elevated, s.o. in room, pt also had a large bm while he was up, and moved some secreations, became gurgly, RT deep suctioned him which improved the wetness a lot. no further changes. call light in reach.
--- NOTE | 2019-03-05 04:07 | NUR ---
SHIFT SUMMARY: PATIENT REPSOITIONED SEVERAL TIMES, PATIENT DIRECTS CARE. PAIN WELL CONTROLLED THIS SHIFT, PATIENT IN GOOD SPIRITS D/T THUROUGH PT AND OT . PATIENT VSS, CALL LIGHT WIHTIN REACH, BED LOW AND LOCKED
[2019-03-05 04:28] LABS: Albumin, Blood 2.8 g/dL (3.4-5.0); Anion Gap 7 mmol/L (6-16); Blood Urea Nitrogen 18 mg/dL (8-24); Bun/Creatinine Ratio 39.5 (12.0-20.0); CO2, Blood 27 mmol/L (21-32); Chloride, Blood 104 mmol/L (98-108); Creatinine, Blood 0.46 mg/dL (0.60-1.20); Glomerular Filtration Rate >60 (60-); Glucose, Blood 95 mg/dL (70-99); Phosphorus, Blood 3.4 mg/dL (2.5-4.9); Potassium, Blood 3.9 mmol/L (3.5-5.5); Sodium, Blood 138 mmol/L (136-145)
[2019-03-05] MEDS ORDERED: DOCU100 PO (12:48)
[2019-03-05] MEDS ORDERED: Vsl#3 Capsule1 EACH PO (13:08)
[2019-03-05] MEDS ORDERED: Bactrim Ds Tab1 EACH PO (13:11)
--- NOTE | 2019-03-05 15:02 | NUR ---
DISCHARGE HOME PT REFUSED W/C VAN HOME. ELSA, PT GIRLFRIEND CAME TO GEET HIM IN POV. TWO PERSON TRANSFER INTO THE FRONT SEAT. PT ABLE TO STAND WELL. NOT ABLE TO MOVE FEET WEEL. GAIT BELT USED AND SENT WITH FAMILY. PT PREMEDICATED WITH HUDROCODONE FOR TRIP HOME. IV REMOVED AND PRESSURE DRESSING APPLIED TO SITE. PERSCRIPTIONS CALLED TO NIC PER PT REQUEST. ELSA PICKED THEM UP PRIOR TO COMEING FOR RAY. CONTINUE POT.
== END 2019-03-05 15:01 | disposition home or self-care (01) | DRG 871 ==
LOC: ER 06:09 → PCU 06:10
PROVIDERS: Emergency Medicine; ADMIT Internal Medicine
DX: A41.02 Sepsis due to Methicillin resistant Staphylococcus aureus (principal); J69.0 Pneumonitis due to inhalation of food and vomit; J96.21 Acute and chronic respiratory failure with hypoxia; G82.50 Quadriplegia, unspecified; J43.9 Emphysema, unspecified; A41.9 Sepsis, unspecified organism; I25.2 Old myocardial infarction; I10 Essential (primary) hypertension; Z85.46 Personal history of malignant neoplasm of prostate; K21.9 Gastro-esophageal reflux disease without esophagitis; F32.9 Major depressive disorder, single episode, unspecified; I25.10 Atherosclerotic heart disease of native coronary artery without angina pectoris; Z95.5 Presence of coronary angioplasty implant and graft; Z79.82 Long term (current) use of aspirin; Z99.81 Dependence on supplemental oxygen; E03.9 Hypothyroidism, unspecified; I71.4 Abdominal aortic aneurysm, without rupture; Z99.3 Dependence on wheelchair; Z90.79 Acquired absence of other genital organ(s); G89.29 Other chronic pain; Z87.891 Personal history of nicotine dependence; K59.09 Other constipation; E78.5 Hyperlipidemia, unspecified; R65.20 Severe sepsis without septic shock
CPT/HCPCS: 0099U; 31720; 36415; 36600; 71045; 71260; 80048; 80053; 80069; 82803; 83605; 83880; 84145; 84484; 85025; 87040; 87070; 87077; 87186; 87205; 92526; 92610; 93005; 93010; 94640; 94660; 94667; 94668; 94760; 94762; 96365; 97110; 97163; 97167; 97530; 97535; 99285-25; A9270-GY; J0456; J0692; J1650; J2543; J7030; J7050; Q9967

== ENCOUNTER 2019-03-14 16:28 | Observation (INO) | payer MEDICARE, OTHER ==
[~2019-03-14] VITALS: Ht 182.9 cm; Wt 55.8 kg
[~2019-03-14 16:28] MED LIST changes: +ALBU3IS NEB; +BISA5EC PO; +BUDE10.22 INH; +Bactrim Ds Tab1 EACH PO; +CEFU250T47 PO; +CITRATE OF MAG296 ML PO; +CVS DISPOSABLE399 ML PR; +Colace250 MG PO; +DOCU100 PO; +EUTHYROX150 MCG PO; +FURO20 PO; +Florastor250 MG PO; +HYDR1TAB94 PO; +LINZESS145 MCG PO; +THERA1 EACH PO; +Vsl#3 Capsule1 EACH PO
[2019-03-14 17:48] LABS: BASOPHILS ABSOLUTE AUTO 0.14 K/mm3 (0.00-0.23); BASOPHILS PERCENT AUTO 1 % (0-2); EOSINOPHILS ABSOLUTE AUTO 0.25 K/mm3 (0.00-0.68); EOSINOPHILS PERCENT AUTO 3 % (0-6); Hematocrit 37.8 % (37.0-53.0); Hemoglobin 12.4 g/dL (13.5-17.5); IMMATURE GRAN ABSOLUTE AUTO 0.04 K/mm3 (0.00-0.10); IMMATURE GRAN PERCENT AUTO 0 % (0-1); LYMPHOCYTES ABSOLUTE AUTO 1.26 K/mm3 (0.84-5.20); LYMPHOCYTES PERCENT AUTO 13 % (21-46); MONOCYTES ABSOLUTE AUTO 0.82 K/mm3 (0.16-1.47); MONOCYTES PERCENT AUTO 8 % (4-13); Mean Corpuscular HGB 29.1 pg (26.0-34.0); Mean Corpuscular HGB Conc 32.8 g/dL (31.5-36.5); Mean Corpuscular Volume 89 fL (80-100); Mean Platelet Volume 8.5 fL (9.1-12.4); NEUTROPHILS ABSOLUTE AUTO 7.48 K/mm3 (1.96-9.15); NEUTROPHILS PERCENT AUTO 75 % (41-73); Platelet Count 421 K/mm3 (150-400); RDW Standard Deviation 48.4 fL (35.1-46.3); Red Blood Cell Count 4.26 M/mm3 (4.30-5.90); White Blood Cell Count 9.99 K/mm3 (4.00-11.30)
[2019-03-14 18:20] LABS: Alanine Aminotransfer (ALT/SGP 27 U/L (12-78); Albumin, Blood 3.5 g/dL (3.4-5.0); Albumin/Globulin Ratio 0.9 (0.8-1.8); Alk Phos 96 U/L (50-136); Anion Gap 8 mmol/L (6-16); Aspartate Aminotrans (AST/SGOT 15 U/L (12-37); Bilirubin, Total 0.2 mg/dL (0.1-1.0); Blood Urea Nitrogen 21 mg/dL (8-24); Bun/Creatinine Ratio 36.6 (12.0-20.0); CO2, Blood 26 mmol/L (21-32); Calcium, Blood 9.6 mg/dL (8.5-10.1); Chloride, Blood 103 mmol/L (98-108); Creatinine, Blood 0.57 mg/dL (0.60-1.20); Globulin, Blood 3.7 g/dL (2.2-4.0); Glomerular Filtration Rate >60 (60-); Glucose, Blood 124 mg/dL (70-99); Potassium, Blood 4.2 mmol/L (3.5-5.5); Sodium, Blood 137 mmol/L (136-145); Total Protein, Blood 7.2 g/dL (6.4-8.2); Troponin I <0.015 ng/mL (0.000-0.040)
[2019-03-15 04:23] LABS: BASOPHILS ABSOLUTE AUTO 0.03 K/mm3 (0.00-0.23); BASOPHILS PERCENT AUTO 0 % (0-2); EOSINOPHILS PERCENT AUTO 0 % (0-6); Hematocrit 37.1 % (37.0-53.0); IMMATURE GRAN ABSOLUTE AUTO 0.03 K/mm3 (0.00-0.10); IMMATURE GRAN PERCENT AUTO 0 % (0-1); LYMPHOCYTES ABSOLUTE AUTO 0.47 K/mm3 (0.84-5.20); LYMPHOCYTES PERCENT AUTO 7 % (21-46); MONOCYTES PERCENT AUTO 1 % (4-13); Mean Corpuscular HGB 29.3 pg (26.0-34.0); Mean Corpuscular HGB Conc 32.3 g/dL (31.5-36.5); Mean Corpuscular Volume 91 fL (80-100); Mean Platelet Volume 8.4 fL (9.1-12.4); NEUTROPHILS PERCENT AUTO 91 % (41-73); Platelet Count 413 K/mm3 (150-400); RDW Coefficient Variation 14.9 % (11.7-14.2); RDW Standard Deviation 49.5 fL (35.1-46.3); Red Blood Cell Count 4.09 M/mm3 (4.30-5.90); White Blood Cell Count 6.93 K/mm3 (4.00-11.30)
--- NOTE | 2019-03-15 04:29 | NUR ---
SVT NOTIFIED BY IRISH MOSS BLEACHER THAT PT WENT INTO SVT AROUND 0325, RATE 180 FOR ABOUT 2 MINUTES. WENT IN TO CHECK ON PT, HE WAS AWAKE, ALERT AND ASYMPTOMATIC. WHEN I CALLED TELE MONITOR BACK AFTER CHECKING ON PT, HR WAS BACK DOWN TO ST 117. DR. MATHEW NOTIFIED AT 0327. NO NEW ORDERS WERE GIVEN, HE STATES JUST TO WATCH FOR NOW.
--- NOTE | 2019-03-15 04:32 | NUR ---
SHIFT SUMMARY PT ER ADMIT THIS SHIFT FOR COPD EXAC. PT HAS HX OF PARTIAL QUADRAPLEGIA, AND A RECENT BROKEN TAILBONE. HE HAS HAD INTERMITTENT PAIN TO HIS TAILBONE THAT IS RELIEVED WITH HYDROCODONE AND IV FENTANYL. PT HAS RECEIVED PO BACTRIM FOR PNA, AND IV SOLUMEDROL IN ER. LUNG SOUNDS COURSE T/O, 2L O2 IN PLACE. SATS WNL. PT A/OX4, MAKES NEEDS KNOWN. ADMISSION COMPLETE. SOFT TOUCH CALL LIGHT WITHIN REACH. EXTREMITIES FLOATED ON PILLOWS. PT RESTING COMFORTABLY AT THIS TIME. VITALS STABLE. WILL CONTINUE TO MONITOR AND REPORT TO ONCOMING RN.
[2019-03-15 04:39] LABS: Anion Gap 7 mmol/L (6-16); Blood Urea Nitrogen 24 mg/dL (8-24); CO2, Blood 26 mmol/L (21-32); Calcium, Blood 9.6 mg/dL (8.5-10.1); Chloride, Blood 103 mmol/L (98-108); Creatinine, Blood 0.57 mg/dL (0.60-1.20); Glomerular Filtration Rate >60 (60-); Glucose, Blood 172 mg/dL (70-99); Potassium, Blood 4.5 mmol/L (3.5-5.5); Sodium, Blood 136 mmol/L (136-145)
--- NOTE | 2019-03-15 17:37 | NUR ---
Spiritual Care inital note: Mr. Miranda is Mormon and was appreciaitve of prayer and encouragement. He told me he lives with his sister and she "takes great care of me." Interestingly, per chart, he lives with a SO "finace." He tells me he feels like he has "been through hell" with his health problems. He admits that he sometimes thinks that would be preferable. He tells me he is hospitalized "B/C of my lungs." He is not fearful of because of his audra in God and an afterlife. But he is very tired of being sick. He is awaiting clear answers and POC going forward. We prayed together for these things and I offered continued support.
--- NOTE | 2019-03-15 18:14 | NUR ---
summary patient reports pain is well controlled at this time and is rated as 4/10 to buttocks and lower legs. patient taking thickened liquids and swallows pills with applesauce has occ. cough with food or fluids but states he does not feel like he is choking.patient with slight gross movement of bilateral arms and unable to feed self. bilateral legs with slight movement of toes. heels elevated on pillow throughout day and rolled towel placed between ankles to keep feet from crossing patient uses soft touch call light when requires assistance
--- NOTE | 2019-03-16 03:57 | NUR ---
69 Y/O MALE RESTED COMFORTABLY ALL SHIFT, REQUIRES ASSISTANCE WITH ALL ADLS/IADLS TO INCLUDE EATING/DRINKING THICKENED LIQUIDS BY STAFF, C/O FREQUENT BACK PAIN 12/12 WITH NORCO 3/325MG PO X 2 TABLETS GIVEN THREE DIFFERENT OCCASIONS WITH RELIEF FELT, ALERT AND ORIENTED X 4, RESTING HIGH FOWLERS POSITION FOR COMFORT, QUADPLEGIC, BED ALARM APPLIED, BED LOW POSITION, CALL LIGHT AT SIDE, TELEMETRY REFLECTS NSR WITH HEART RATE 80 PER KIERRA (MEDICAL DIRECTOR), CONTACT PRECAUTIONS MAINTAINED FOR MRSA.
[2019-03-16] MEDS ORDERED: Prednisone10 MG PO (14:54)
[2019-03-16] MEDS ORDERED: ONE DAILY COMP1 EACH PO (14:57)
--- NOTE | 2019-03-16 16:35 | NUR ---
Discharge Summary Reviewed discharge paperwork and education with patient. Given time to ask questions. Pt discharge via ambulance to home. Follow-up appointment scheduled with PCP for @ 1100. Meds faxed to preferred pharmacy, 1 hard script sent home with patient. Belongings also sent home with patient.
== END 2019-03-16 16:36 | disposition home health service (06) ==
LOC: ER 16:28 → MEDS 16:29 → ENPENDDIS 03-16 12:54 → MEDS 03-16 16:36
PROVIDERS: Emergency Medicine; Nurse Practitioner Acute Care; ADMIT Internal Medicine
DX: J44.1 Chronic obstructive pulmonary disease with (acute) exacerbation (principal); J96.21 Acute and chronic respiratory failure with hypoxia; K59.03 Drug induced constipation; T40.2X5A Adverse effect of other opioids, initial encounter; R13.12 Dysphagia, oropharyngeal phase; I25.10 Atherosclerotic heart disease of native coronary artery without angina pectoris; I10 Essential (primary) hypertension; G89.29 Other chronic pain; M54.9 Dorsalgia, unspecified; G82.50 Quadriplegia, unspecified; E03.9 Hypothyroidism, unspecified; E78.5 Hyperlipidemia, unspecified; K21.9 Gastro-esophageal reflux disease without esophagitis; F32.9 Major depressive disorder, single episode, unspecified; E43 Unspecified severe protein-calorie malnutrition; Z87.01 Personal history of pneumonia (recurrent); Z87.891 Personal history of nicotine dependence; Z99.81 Dependence on supplemental oxygen; Z88.8 Allergy status to other drugs, medicaments and biological substances; Z88.5 Allergy status to narcotic agent; Z79.899 Other long term (current) drug therapy; Z79.51 Long term (current) use of inhaled steroids; Z95.5 Presence of coronary angioplasty implant and graft; Z85.46 Personal history of malignant neoplasm of prostate; Z90.79 Acquired absence of other genital organ(s)
CPT/HCPCS: 36415; 71045; 80048; 80053; 83605; 83880; 84484; 85025; 92610; 93005; 93010; 94640; 94667; 94760; 94762; 96372; 96374; 96375; 96376; 97110; 97163; 97530; 98960; 99285-25; 99406; A9270-GY; G0378; J0456; J1650; J1885; J2930; J3010; J7050; J7512

== ENCOUNTER 2019-03-27 13:09 | Inpatient (IN) | payer MEDICARE, OTHER ==
[~2019-03-27] VITALS: Ht 182.9 cm; Wt 53.5 kg
[~2019-03-27 13:09] MED LIST changes: +ONE DAILY COMP1 EACH PO; +Prednisone10 MG PO
[2019-03-27 13:28] LABS: BASOPHILS ABSOLUTE AUTO 0.08 K/mm3 (0.00-0.23); BASOPHILS PERCENT AUTO 1 % (0-2); EOSINOPHILS ABSOLUTE AUTO 0.18 K/mm3 (0.00-0.68); EOSINOPHILS PERCENT AUTO 1 % (0-6); Hematocrit 35.7 % (37.0-53.0); Hemoglobin 11.5 g/dL (13.5-17.5); IMMATURE GRAN ABSOLUTE AUTO 0.08 K/mm3 (0.00-0.10); IMMATURE GRAN PERCENT AUTO 1 % (0-1); LYMPHOCYTES ABSOLUTE AUTO 1.57 K/mm3 (0.84-5.20); LYMPHOCYTES PERCENT AUTO 12 % (21-46); MONOCYTES ABSOLUTE AUTO 1.01 K/mm3 (0.16-1.47); MONOCYTES PERCENT AUTO 8 % (4-13); Mean Corpuscular HGB 29.7 pg (26.0-34.0); Mean Corpuscular HGB Conc 32.2 g/dL (31.5-36.5); Mean Corpuscular Volume 92 fL (80-100); Mean Platelet Volume 8.6 fL (9.1-12.4); NEUTROPHILS ABSOLUTE AUTO 10.08 K/mm3 (1.96-9.15); NEUTROPHILS PERCENT AUTO 78 % (41-73); Platelet Count 395 K/mm3 (150-400); RDW Coefficient Variation 15.8 % (11.7-14.2); RDW Standard Deviation 53.5 fL (35.1-46.3); Red Blood Cell Count 3.87 M/mm3 (4.30-5.90)
[2019-03-27 13:52] LABS: Alanine Aminotransfer (ALT/SGP 20 U/L (12-78); Albumin, Blood 3.1 g/dL (3.4-5.0); Albumin/Globulin Ratio 0.8 (0.8-1.8); Alk Phos 82 U/L (50-136); Anion Gap 5 mmol/L (6-16); Aspartate Aminotrans (AST/SGOT 20 U/L (12-37); Bilirubin, Total 0.4 mg/dL (0.1-1.0); Blood Urea Nitrogen 19 mg/dL (8-24); Bun/Creatinine Ratio 45.9 (12.0-20.0); CO2, Blood 29 mmol/L (21-32); Calcium, Blood 9.2 mg/dL (8.5-10.1); Chloride, Blood 102 mmol/L (98-108); Creatinine, Blood 0.41 mg/dL (0.60-1.20); Globulin, Blood 3.7 g/dL (2.2-4.0); Glomerular Filtration Rate >60 (60-); Glucose, Blood 95 mg/dL (70-99); Potassium, Blood 4.4 mmol/L (3.5-5.5); Sodium, Blood 136 mmol/L (136-145); Total Protein, Blood 6.8 g/dL (6.4-8.2); Troponin I <0.015 ng/mL (0.000-0.040)
[2019-03-27 14:36] LABS: PCO2 Arterial 43.3 mmHg (35-45); pH Blood Arterial 7.42 (7.35-7.45)
[2019-03-27] MEDS ORDERED: TIOT18 INH (16:11)
[2019-03-27] MEDS ORDERED: CEFU250T47 PO (17:00)
[2019-03-27] MEDS ORDERED: Prinivil10 MG PO (17:01)
[2019-03-27] MEDS ORDERED: ALBU90OI INH (17:35)
[2019-03-27] MEDS ORDERED: CLOP75 PO (17:42)
[2019-03-27] MEDS ORDERED: Aspir 8181 MG PO (17:43)
[2019-03-27] MEDS ORDERED: Florastor250 MG PO (17:45)
--- NOTE | 2019-03-27 21:00 | NUR ---
PATIENT ARRIVED TO THE FLOOR ON GURNEY UNABLE TO TRANSFER SELF. PATIENT ABLE TO MOVE HANDS AT TIMES BUT HE STATES IT IS DIFFICULT. PROVIDE SOFT TOUCH. PATIENT NOT ABLE TO REPOSITION OR MAKING MOVEMENTS OTHER THAN VERY SLIGHT HAND MOVEMENTS. PATIENT NEEDS TO BE A FEEDER. PATIENT STATES HE IS ON A MECHENICAL SOFT DIET WITH NECTAR THICK LIQUIDS AND IS ALOUD STRAWS. PATIENT STATES HE IS ABLE TO TAKE PILLS WHOLE WITH APPLESAUCE. PATIENT HAS TO BE IN HIGH FOWLERS FOR ANY FOOD OR DRINKS. PATIENT COMPLAINS OF CONSTANT CHRONIC PAIN IN BACK. SENSATION INTACT. PATIENT HAS FOOT DROP BUT HAS NO BRACES, STATES THE DOCTOR STATED HE WAS GOING TO GET SOME BUT HAS NEVER GOT THEM. PATIENT WANTING TO GET COLE LIFT FOR AT HOME. STATES THAT HIS SON AND GIRLFRIEND PHYSICAL PICK HIM UP AT TIMES TO GET INTO THE CHAIR AND ON THE COMMODE. HAS BEEN A STAND AND PIVOT BUT HAS DECONDITIONED RECENTLY.
--- NOTE | 2019-03-28 02:26 | NUR ---
PATIENT MOVED ROOMS, ASSUMED CARE OF PATIENT. PATIENT RESTING IN BED WITH LIGHT ON. DENIES ANY PAIN OR NEEDS AT THIS TIME. BLE DRESSING CHANGES DONE BY CHARGE NURSES.
[2019-03-28 05:00] LABS: Hematocrit 31.9 % (37.0-53.0); Hemoglobin 10.3 g/dL (13.5-17.5); Mean Corpuscular HGB 29.2 pg (26.0-34.0); Mean Corpuscular HGB Conc 32.3 g/dL (31.5-36.5); Mean Corpuscular Volume 90 fL (80-100); Mean Platelet Volume 8.5 fL (9.1-12.4); Platelet Count 335 K/mm3 (150-400); RDW Coefficient Variation 15.7 % (11.7-14.2); RDW Standard Deviation 51.8 fL (35.1-46.3); Red Blood Cell Count 3.53 M/mm3 (4.30-5.90)
[2019-03-28 05:28] LABS: Anion Gap 5 mmol/L (6-16); Blood Urea Nitrogen 18 mg/dL (8-24); Bun/Creatinine Ratio 41.7 (12.0-20.0); CO2, Blood 29 mmol/L (21-32); Chloride, Blood 102 mmol/L (98-108); Creatinine, Blood 0.43 mg/dL (0.60-1.20); Glomerular Filtration Rate >60 (60-); Glucose, Blood 93 mg/dL (70-99); Potassium, Blood 3.9 mmol/L (3.5-5.5); Sodium, Blood 136 mmol/L (136-145)
--- NOTE | 2019-03-28 07:31 | NUR ---
PATIENT ALERT AND ORIENTATED. PATIENT FLOATED AND LIKES PILLOW FLUFFED UP, BUT REFUSES TO LAY ON ONE SIDE. PATIENT SLEPT WELL THROUGH NIGHT COUGH ON AND OFF. NOT ABLE TO PRODUCE ANYTHING. NOTIFIED RT TO SEE IF THEY COULD GET SPUTUM. SOFT TOUCH WITH IN REACH.
--- NOTE | 2019-03-28 18:37 | NUR ---
PROVIDED PASSIVE MOVMENT, PT ATE WELL THIS SHIFT. PROVIDED A EGG CARTON MATTRESS TOPPER FOR THE PATIENT. PT HAD PAIN IN HIS LEGS AND SHOULDER FREQUENTLY THROUGHTOUT THIS SHIFT WHICH WAS WELL MANAGE WITH PRN PAIN MEDICATION. PT GIRLFRIEND AT BEDSIDE TOWARDS THE END OF THE SHIFT.
[2019-03-29 05:10] LABS: Hematocrit 34.9 % (37.0-53.0); Hemoglobin 11.3 g/dL (13.5-17.5); Mean Corpuscular HGB 30.3 pg (26.0-34.0); Mean Corpuscular HGB Conc 32.4 g/dL (31.5-36.5); Mean Platelet Volume 8.4 fL (9.1-12.4); Platelet Count 329 K/mm3 (150-400); RDW Coefficient Variation 15.8 % (11.7-14.2); RDW Standard Deviation 53.8 fL (35.1-46.3); Red Blood Cell Count 3.73 M/mm3 (4.30-5.90); White Blood Cell Count 12.75 K/mm3 (4.00-11.30)
[2019-03-29 05:12] LABS: Mean Corpuscular Volume 94 fL (80-100)
[2019-03-29 05:45] LABS: Anion Gap 4 mmol/L (6-16); Blood Urea Nitrogen 13 mg/dL (8-24); Bun/Creatinine Ratio 27.2 (12.0-20.0); CO2, Blood 30 mmol/L (21-32); Calcium, Blood 9.1 mg/dL (8.5-10.1); Chloride, Blood 101 mmol/L (98-108); Creatinine, Blood 0.48 mg/dL (0.60-1.20); Glomerular Filtration Rate >60 (60-); Glucose, Blood 91 mg/dL (70-99); Potassium, Blood 3.9 mmol/L (3.5-5.5); Sodium, Blood 135 mmol/L (136-145); Vancomycin, Trough 12.1 ug/mL (5.0-10.0)
--- NOTE | 2019-03-29 06:21 | NUR ---
SPOKE WITH PHARMACY AND THEY WANT THE VANCO TO BE GIVEN AT 0600 DESPITE 12.1.
--- NOTE | 2019-03-29 07:18 | NUR ---
SHIFT SUMMARY PT IS ALERT AND ORIENTED. PT RECIEVED PAIN MEDICATIONS ORDERED. NO COMPLAINTS OF SOB. PT WAS INCONTINENT TWICE. PT'S SHEETS CHANGED NEEDED. VSS. WILL CONTINUE TO MONITOR.
[2019-03-29] MEDS ORDERED: Vsl#3 Capsule1 EACH PO (12:18)
[2019-03-29] MEDS ORDERED: Bactrim Ds Tab1 EACH PO (12:19)
--- NOTE | 2019-03-29 15:12 | NUR ---
PT DISCHARGED HOME. PT GIRLFRIEND ARRIVED TO UNIT AND REQUESTED ASSISTANCE FROM THE STAFF TO MOVE PT INTO VEHICLE. THEY WERE INFROMED THAT WE WOULD NOT BE ABLE TO PROVIDE LIFTING ASSISTACE INTO THE VEHICLE. LEAD ORACLE DEVELOPER DISCUSSED THE POSSIBILITY OF GETTING A TRANSPORT. PT DID NOT WANT TO BECAUSE OF THE COST. ARRANGED [facility]. [facility] ARRIVED WITH A GURNEY TO TRANSPORT PT HOME. LEFT UNIT AT 1510. DISCHARGE INSTRUCTIONS REVIEW WITH PT AND HIS GIRLFRIEND. PT SENT HOME WITH A FLUTTER.
== END 2019-03-29 15:11 | disposition home health service (06) | DRG 871 ==
LOC: ER 13:09 → SURS 13:10 → MEDS 20:38 → ENPENDDIS 03-29 11:12 → MEDS 03-29 15:11
PROVIDERS: Emergency Medicine; ADMIT Internal Medicine
DX: A41.02 Sepsis due to Methicillin resistant Staphylococcus aureus (principal); J96.21 Acute and chronic respiratory failure with hypoxia; G82.50 Quadriplegia, unspecified; J15.212 Pneumonia due to Methicillin resistant Staphylococcus aureus; E87.2 Acidosis; J44.0 Chronic obstructive pulmonary disease with (acute) lower respiratory infection; R65.20 Severe sepsis without septic shock; I25.2 Old myocardial infarction; I25.10 Atherosclerotic heart disease of native coronary artery without angina pectoris; K21.9 Gastro-esophageal reflux disease without esophagitis; E78.5 Hyperlipidemia, unspecified; E03.9 Hypothyroidism, unspecified; I10 Essential (primary) hypertension; Z90.79 Acquired absence of other genital organ(s); F32.9 Major depressive disorder, single episode, unspecified; Z87.891 Personal history of nicotine dependence; R13.12 Dysphagia, oropharyngeal phase
CPT/HCPCS: 36415; 36600; 71046; 80048; 80053; 80202; 82803; 83605; 83880; 84484; 85025; 85027; 87040; 87070; 87077; 87147; 87186; 87205; 93005; 93010; 94640; 94760; 96361; 96365; 96366; 96367; 96372; 96375; 99285-25; A9270-GY; G0378; J1650; J1956; J3010; J3370; J7030; J7120

== ENCOUNTER 2019-04-06 15:03 | Emergency (ER) | payer MEDICARE, OTHER ==
[~2019-04-06] VITALS: Ht 182.9 cm; Wt 56.7 kg
[~2019-04-06 15:03] MED LIST changes: +ALBU90OI INH; +Aspir 8181 MG PO
[2019-04-06 15:29] LABS: BASOPHILS PERCENT AUTO 1 % (0-2); EOSINOPHILS ABSOLUTE AUTO 0.25 K/mm3 (0.00-0.68); EOSINOPHILS PERCENT AUTO 2 % (0-6); Hematocrit 39.6 % (37.0-53.0); Hemoglobin 12.7 g/dL (13.5-17.5); IMMATURE GRAN ABSOLUTE AUTO 0.03 K/mm3 (0.00-0.10); IMMATURE GRAN PERCENT AUTO 0 % (0-1); LYMPHOCYTES ABSOLUTE AUTO 1.11 K/mm3 (0.84-5.20); LYMPHOCYTES PERCENT AUTO 9 % (21-46); MONOCYTES PERCENT AUTO 7 % (4-13); Mean Corpuscular HGB 29.8 pg (26.0-34.0); Mean Corpuscular HGB Conc 32.1 g/dL (31.5-36.5); Mean Corpuscular Volume 93 fL (80-100); Mean Platelet Volume 8.4 fL (9.1-12.4); NEUTROPHILS ABSOLUTE AUTO 10.09 K/mm3 (1.96-9.15); NEUTROPHILS PERCENT AUTO 82 % (41-73); Platelet Count 418 K/mm3 (150-400); RDW Coefficient Variation 16.1 % (11.7-14.2); RDW Standard Deviation 54.9 fL (35.1-46.3); Red Blood Cell Count 4.26 M/mm3 (4.30-5.90); White Blood Cell Count 12.38 K/mm3 (4.00-11.30)
[2019-04-06 15:51] LABS: Alanine Aminotransfer (ALT/SGP 16 U/L (12-78); Albumin, Blood 3.3 g/dL (3.4-5.0); Albumin/Globulin Ratio 0.8 (0.8-1.8); Alk Phos 113 U/L (50-136); Anion Gap 8 mmol/L (6-16); Aspartate Aminotrans (AST/SGOT 13 U/L (12-37); Bilirubin, Total 0.3 mg/dL (0.1-1.0); Blood Urea Nitrogen 23 mg/dL (8-24); Bun/Creatinine Ratio 43.3 (12.0-20.0); CO2, Blood 29 mmol/L (21-32); Calcium, Blood 9.4 mg/dL (8.5-10.1); Chloride, Blood 103 mmol/L (98-108); Creatinine, Blood 0.53 mg/dL (0.60-1.20); Globulin, Blood 3.9 g/dL (2.2-4.0); Glomerular Filtration Rate >60 (60-); Glucose, Blood 143 mg/dL (70-99); Sodium, Blood 140 mmol/L (136-145); Total Protein, Blood 7.2 g/dL (6.4-8.2)
[2019-04-06] MEDS ORDERED: Zithromax250 MG PO (17:23)
[2019-04-06] MEDS ORDERED: Prednisone20 MG PO (17:24)
== END 2019-04-06 19:20 | disposition home or self-care (01) ==
LOC: ER 15:03
PROVIDERS: Physician Assistant
DX: J44.1 Chronic obstructive pulmonary disease with (acute) exacerbation (principal); I25.2 Old myocardial infarction; Z85.46 Personal history of malignant neoplasm of prostate; Z87.891 Personal history of nicotine dependence; Z88.0 Allergy status to penicillin; Z88.5 Allergy status to narcotic agent; Z88.8 Allergy status to other drugs, medicaments and biological substances; Z79.899 Other long term (current) drug therapy; Z79.02 Long term (current) use of antithrombotics/antiplatelets; Z79.82 Long term (current) use of aspirin
CPT/HCPCS: 36415; 71045; 80053; 84484; 85025; 87040; 93005; 93010; 94640; 96361; 96374; 99284-25; J2930; J7030

== ENCOUNTER 2019-04-08 21:17 | Inpatient (IN) | payer MEDICARE, OTHER ==
[~2019-04-08] VITALS: Ht 182.9 cm; Wt 56.7 kg
[~2019-04-08 21:17] MED LIST changes: +Zithromax250 MG PO
[2019-04-08 23:39] LABS: BASOPHILS ABSOLUTE AUTO 0.03 K/mm3 (0.00-0.23); BASOPHILS PERCENT AUTO 0 % (0-2); EOSINOPHILS PERCENT AUTO 0 % (0-6); Hematocrit 36.9 % (37.0-53.0); Hemoglobin 11.6 g/dL (13.5-17.5); IMMATURE GRAN ABSOLUTE AUTO 0.04 K/mm3 (0.00-0.10); IMMATURE GRAN PERCENT AUTO 0 % (0-1); LYMPHOCYTES PERCENT AUTO 6 % (21-46); MONOCYTES ABSOLUTE AUTO 0.25 K/mm3 (0.16-1.47); MONOCYTES PERCENT AUTO 2 % (4-13); Mean Corpuscular HGB 29.2 pg (26.0-34.0); Mean Corpuscular HGB Conc 31.4 g/dL (31.5-36.5); Mean Corpuscular Volume 93 fL (80-100); Mean Platelet Volume 8.8 fL (9.1-12.4); NEUTROPHILS ABSOLUTE AUTO 9.85 K/mm3 (1.96-9.15); NEUTROPHILS PERCENT AUTO 91 % (41-73); Platelet Count 501 K/mm3 (150-400); RDW Coefficient Variation 15.9 % (11.7-14.2); RDW Standard Deviation 54.8 fL (35.1-46.3); Red Blood Cell Count 3.97 M/mm3 (4.30-5.90); White Blood Cell Count 10.87 K/mm3 (4.00-11.30)
[2019-04-08 23:50] LABS: Alanine Aminotransfer (ALT/SGP 21 U/L (12-78); Albumin, Blood 3.4 g/dL (3.4-5.0); Albumin/Globulin Ratio 0.9 (0.8-1.8); Alk Phos 112 U/L (50-136); Anion Gap 7 mmol/L (6-16); Aspartate Aminotrans (AST/SGOT 13 U/L (12-37); Bilirubin, Total 0.2 mg/dL (0.1-1.0); Blood Urea Nitrogen 21 mg/dL (8-24); Bun/Creatinine Ratio 40.4 (12.0-20.0); CO2, Blood 27 mmol/L (21-32); Calcium, Blood 9.6 mg/dL (8.5-10.1); Chloride, Blood 103 mmol/L (98-108); Creatinine, Blood 0.52 mg/dL (0.60-1.20); Globulin, Blood 3.8 g/dL (2.2-4.0); Glomerular Filtration Rate >60 (60-); Glucose, Blood 127 mg/dL (70-99); Potassium, Blood 4.3 mmol/L (3.5-5.5); Sodium, Blood 137 mmol/L (136-145); Total Protein, Blood 7.2 g/dL (6.4-8.2)
--- NOTE | 2019-04-09 06:39 | NUR ---
SHIFT SUMMARY ADMIT @ 0240. AOX4. LS DIM, SOB. PT ON 3L NC, WEARS 2L O2 AT HOME. NO C/O NAUSEA. PAIN 5 IN BACK, 25MCG OF FENT GIVEN @ 0610. SKIN HAS SCATTERED BRUISING ON UPPER ARMS. COCCYX HAS MEPILEX, SMALL SKIN TEAR ON COCCYX. L FA IV HAS NS INFUSING. NPO. ST WILL EVAL TODAY. QUADREPLEGIC. HX OF THROAT AND PROSTATE CANCER. TELE READS SINUS TACH 104. VSS.
[2019-04-09 08:31] LABS: Hematocrit 33.2 % (37.0-53.0); Hemoglobin 10.8 g/dL (13.5-17.5); Mean Corpuscular HGB 29.4 pg (26.0-34.0); Mean Corpuscular HGB Conc 32.5 g/dL (31.5-36.5); Mean Corpuscular Volume 91 fL (80-100); Mean Platelet Volume 8.5 fL (9.1-12.4); Platelet Count 402 K/mm3 (150-400); RDW Standard Deviation 53.3 fL (35.1-46.3); Red Blood Cell Count 3.67 M/mm3 (4.30-5.90); White Blood Cell Count 10.67 K/mm3 (4.00-11.30)
[2019-04-09 08:48] LABS: Alanine Aminotransfer (ALT/SGP 14 U/L (12-78); Albumin, Blood 3.1 g/dL (3.4-5.0); Albumin/Globulin Ratio 0.9 (0.8-1.8); Alk Phos 97 U/L (50-136); Anion Gap 6 mmol/L (6-16); Aspartate Aminotrans (AST/SGOT 10 U/L (12-37); Bilirubin, Total 0.3 mg/dL (0.1-1.0); Blood Urea Nitrogen 25 mg/dL (8-24); Bun/Creatinine Ratio 49.8 (12.0-20.0); CO2, Blood 27 mmol/L (21-32); Calcium, Blood 9.4 mg/dL (8.5-10.1); Chloride, Blood 104 mmol/L (98-108); Globulin, Blood 3.5 g/dL (2.2-4.0); Glomerular Filtration Rate >60 (60-); Glucose, Blood 117 mg/dL (70-99); Potassium, Blood 4.1 mmol/L (3.5-5.5); Sodium, Blood 137 mmol/L (136-145); Total Protein, Blood 6.6 g/dL (6.4-8.2)
--- NOTE | 2019-04-09 09:00 | NUR ---
SPOKE TO DR HERNANDEZ- PT NPO FOR ASPIRATION RISK AWAITING SWALLOW EVAL. HOLD ALL PO MEDS PER DR HERNANDEZ UNTIL SAWLLOW EVAL COMPLETED.
--- NOTE | 2019-04-09 18:00 | NUR ---
CALLED DR HERNANDEZ- RECIEVED AN ORDER FOR DEEP SUCTION NEEDED PER RT. PT IN SOME DISTRESS C/O "CHOKING." CALLED RT TO PERFORM SUCTION, RN STAYING AT THE BEDSIDE.
--- NOTE | 2019-04-09 19:30 | NUR ---
SHIFT SUMMARY- BEDSIDE REPORT COMPLETED WITH NIGHT RN JACK. PT ALERT AND ORIENTED, UP IN THE CHAIR AT THIS TIME, REQUESTING TO GO BACK TO BED AT THE TIME OF SHIFT CHANGE. PT STATING HE IS CHOKING AGAIN. CALLED RT GELACIO. ATTEMPTED FLUTTER VALVE THERAPY, PT UNABLE TO BLOW HARD ENOUGH TO MAKE THE VALVE WORK. NIGHT RN IS AWARE. SPOKE TO NIGHT MUTUEL CASHIER WELL, SHE IS NOW AWARE.
[2019-04-10 05:04] LABS: BASOPHILS ABSOLUTE AUTO 0.09 K/mm3 (0.00-0.23); BASOPHILS PERCENT AUTO 1 % (0-2); EOSINOPHILS ABSOLUTE AUTO 0.06 K/mm3 (0.00-0.68); EOSINOPHILS PERCENT AUTO 0 % (0-6); Hematocrit 39.5 % (37.0-53.0); Hemoglobin 12.3 g/dL (13.5-17.5); IMMATURE GRAN ABSOLUTE AUTO 0.07 K/mm3 (0.00-0.10); IMMATURE GRAN PERCENT AUTO 1 % (0-1); LYMPHOCYTES ABSOLUTE AUTO 1.24 K/mm3 (0.84-5.20); LYMPHOCYTES PERCENT AUTO 8 % (21-46); MONOCYTES ABSOLUTE AUTO 1.16 K/mm3 (0.16-1.47); MONOCYTES PERCENT AUTO 8 % (4-13); Mean Corpuscular HGB 29.2 pg (26.0-34.0); Mean Corpuscular HGB Conc 31.1 g/dL (31.5-36.5); Mean Platelet Volume 8.3 fL (9.1-12.4); NEUTROPHILS ABSOLUTE AUTO 12.73 K/mm3 (1.96-9.15); NEUTROPHILS PERCENT AUTO 83 % (41-73); Platelet Count 480 K/mm3 (150-400); RDW Standard Deviation 56.1 fL (35.1-46.3); Red Blood Cell Count 4.21 M/mm3 (4.30-5.90); White Blood Cell Count 15.35 K/mm3 (4.00-11.30)
--- NOTE | 2019-04-10 05:06 | NUR ---
HYPOXEMIA PT WITH 02 SATS IN THE 60% ON BASELINE OF 2L. RT RESPONDED TO RN CALL, PT PLACED ON 15L VIA NWB. O2 SATS AT 86%. HR 129. RT PEROFRMING DEEP SUCTION. QUINCY NOTIFIED. ORDERS BIPAP IF PT WISHES. ALSO ORDERS 0.5MG IV ATIVAN ONCE. WILL ADMINISTER. WILL CONT TO MONITOR PT. RT AT BEDSIDE WITH RN.
[2019-04-10 05:08] LABS: Mean Corpuscular Volume 94 fL (80-100)
--- NOTE | 2019-04-10 05:25 | NUR ---
0.5 mg IV ATIVAN ADMINSITERED. RT SET UP BIPAP, PT VERBALIZES WISHES TO BE ON BIPAP AFTER BEING EDUCATED ON WHAT IT IS. PT IS RESTING AT THIS TIME, HR 120s, O2 SATS 92% ON 15 L VIA BIPAP.
--- NOTE | 2019-04-10 05:26 | NUR ---
ATTEMPTED TO NOTIFY FAMILY OF CHANGE IN PT CONDITION -- NO ANSWER.
[2019-04-10 05:35] LABS: Albumin, Blood 3.6 g/dL (3.4-5.0); Anion Gap 9 mmol/L (6-16); Blood Urea Nitrogen 26 mg/dL (8-24); Bun/Creatinine Ratio 50.1 (12.0-20.0); CO2, Blood 27 mmol/L (21-32); Calcium, Blood 9.6 mg/dL (8.5-10.1); Chloride, Blood 104 mmol/L (98-108); Creatinine, Blood 0.52 mg/dL (0.60-1.20); Glomerular Filtration Rate >60 (60-); Glucose, Blood 118 mg/dL (70-99); Phosphorus, Blood 3.4 mg/dL (2.5-4.9); Potassium, Blood 4.3 mmol/L (3.5-5.5); Sodium, Blood 140 mmol/L (136-145)
--- NOTE | 2019-04-10 06:23 | NUR ---
PT RESTING IN BED. EYES SHUT, AROUSES TO NAME. BIPAP WITH 15L BLEED IN. HR STILL IN 120s
--- NOTE | 2019-04-10 06:45 | NUR ---
SHIFT SUMMARY PT HAD SIGNIFICANT RESPIRATORY DECLINE TONIGHT. PT WENT FROM 2L VIA NC, TO REQUIRING 15 L ON BIPAP. O2 SATS DROPPED DOWN TO 60% TONIGHT, CURRENTLY AT 90% ON BIPAP. PT VERBALIZED WISH TO BE ON BIPAP. RT HAS BEEN PERFORMING PERCUSSION AND DEEP SUCTION T/O NIGHT. PT ALSO RECIEVED 0.5 MG IV ATIVAN ONCE TO ASSIST WITH RESP EFFORT AND ELEVATED HR. HR IS STILL ELEVATED IN THE 120s. MD IS AWARE. LS DIM. CONT PULSE OX IN PLACE. WILL CONT TO MONITOR AND PROVIDE CARE UNTIL PRESUMED BY ONCOMING RN.
--- NOTE | 2019-04-10 09:53 | NUR ---
Spoke with Henry's fiance, caregiver and [facility], Cydney. She will be here at 1 pm today. Updated her on Henry's decline in condition over night. She reports that the last 6 months have been very difficult for Henry. She reports it started with a back surgery followed by a fall, fractured tail bone, an infection and another surgery which resulted in paralysis. She reports he spent 100 days at [facility] and he is now at home for about the past month. They have [facility] following them. Cydney is his primary caregiver. She reports Henry's son and sister sometimes are able to help out with his care needs. She reports he has lost about 80 pounds during this time period. He has difficulty swallowing and has had recurrent aspiration. Will plan to address goals and plan of care today when she arrives. Will allow Henry to rest this morning. Nursing updated on plan for 1 pm meeting.
--- NOTE | 2019-04-10 15:32 | NUR ---
COMFORT CARE COMFORT CARE INITIATED AT 1400. PT MEDICATED FOR PAIN. SLEEPING AT THIS TIME. WILL CONTINUE TO MONITOR.
--- NOTE | 2019-04-10 17:38 | NUR ---
SHIFT SUMMARY PT TRANSITIONED TO COMFORT CARE THIS SHIFT. PT TOLERTING SMALL AMOUNTS OF TIME OF THE BIPAP ON 2-3L OF O2 VIA OXIMIZER. BIPAP AT 15L FOR COMFORT. PT REPOSITIONED NEEDED. PAIN MEDS GIVEN NEEDED. SEE EMAR. WILL CONTINUE TO MONITOR FOR PT COMFORT.
--- NOTE | 2019-04-11 05:27 | NUR ---
SHIFT SUMMARY COMFORT CARE STATUS MAINTAINED. ADMINISTERED FENTANYL NEEDED AND PER PT REQUEST. PT REPOSITIONED TOLERATED/ REQUESTED. CURRENTLY ON 6L VIA OXYMIZER. PT ALSO HAS BIPAP WITH 15L 02 AT BEDSIDE, SWITCHING BETWEEN THE TWO NENO AND PT REQUESTS. PT HAS NOT HAD ANY DYSPNEIC EPISODES TONIGHT. WILL CONT TO MONITOR AND PROVIDE CARE UNTIL PRESUMED BY ONCOMING RN.
--- NOTE | 2019-04-11 09:55 | NUR ---
RT IN FOR BREATHING TX. PT STATE PAIN "ALL OVER", PRN FENTANYL 50 MCG GIVEN FOR RELIEF. HE IS THIN/FRAIL. VOICE WEAK. HE STATE "I CAN'T SWALLOW", DECLINES ORAL MEDS. SISTER @ BEDSIDE. DR HERNANDEZ INTO SEE PT. PALLIATIVE CARE RN STATE PLAN FOR D/C ON HOSPICE TOMMOROW. O2 @ 6L OXIMIZER.
--- NOTE | 2019-04-11 11:23 | NUR ---
PAL CARE COMFORT CARE VISIT MADE EARLIER THIS AM. PT WAS RECEIVING BREATHING TX PER HIS REQUEST PER RT. SPOKE WITH RN RE: PLAN OF CARE AND MEDICATIONS FOR COMFORT WITH PLAN TO TRANSITION HOME IF POSSIBLE IN THE NEXT 1-2 DAYS. WILL COORDINATE WITH , MATTHIEU AND FAMILY ON ASSISTING WITH DC PLANS AND S/S MANAGEMENT.
--- NOTE | 2019-04-11 11:41 | NUR ---
PASTORAL CARE AYLEEN HEAD IN TO SEE PT, PROVIDE COMFORT. STATEMENT CLERK ASSIST W FLUIDS. HE STATE PAIN IMPROVED HOWEVER CONTINUES, LIQUID OXYCODONE STARTED @ 10MG IN PREP FOR HOME TOMORROW. WILL MX FOR PAIN RELIEF RESULTS.
--- NOTE | 2019-04-11 14:18 | NUR ---
PT STATE BREATHING DIFFICULTY, WET GURGLING BREATH SOUNDS. ATTEMPTS TO SX W YONKERS UNSUCCESSFUL. RT NOTIFIED, IN TO ASSESS, EXPLAIN DEEP SX, PT STATE HE WANTS TX, RT PROVIDE, HE STATE BREATHING IMPROVEMENT AFTER. OXYCODONE 10MG GIVEN FOR PAIN. PT RESTING QUIETLY, O2 VIA OXIMIZER @ 4L, PT'S SISTER @ BEDSIDE.
--- NOTE | 2019-04-11 17:15 | NUR ---
ANTWANT FAMILY IN ROOM WITH PT, SUPPORTIVE. PT STATE PAIN /, REQUESTS IV FENTANYL, EXPLAINED TO PT & FAMILY THAT DR WOULD LIKE TO TRIAL LIQUID OXYCODONE IN PREP FOR HOME, PT IS RECEPTIVE, ASKS FOR FULL DOSE, 20MG GIVEN. SHORTLY AFTER HE IS RESTING QUIETLY, APPEARS EFFECTIVE.
--- NOTE | 2019-04-11 17:33 | NUR ---
Spiritual Care inital note: Mr. Miranda was alone in room. He says he is angry at his declining health and is ready to . He wants to go home and is irritated that he is stil hospitalized. He feels that Cydney, his finace and care-ekg/ecg technician, takes good care of him. Simon responded well to theraputic listening and gentle evp general counsel. He allowed me to pray for him at conclusion of visit. He is not particularly shinto. I will remain available.
--- NOTE | 2019-04-11 18:15 | NUR ---
PT RESTING QUIETLY, SLLEPING. O2 @ 4L OXIMIZER. FAMILY @ BEDSIDE.
--- NOTE | 2019-04-11 20:01 | NUR ---
PT RESTING QUIETLY, IN NO APPARENT DISTRESS.
--- NOTE | 2019-04-11 22:20 | NUR ---
COMFORT CARE ROUNDS: PT REPORTS PAIN 02/11. GAVE 20MG OXICODONE PER EMAR. CHANGED LINENS. PT VOIDED. REPOSITIONED. PT COUGHED AND RN PROVIDED LITE SUCTION PER PT REQUEST. ORAL CARE. ELEVATED LEGS ON PILLOWS. BED LOW AND LOCKED. BUTTON WITHIN REACH.
--- NOTE | 2019-04-12 00:28 | NUR ---
CONFORT CARE TOUNDS: PATIENT RESTING QUIETLY NOW, SLEEPING, NO APPARENT DISTRESS. BED LOW AND LOCKED AND BUTTON WITHIN REACH
--- NOTE | 2019-04-12 08:19 | NUR ---
CURRENTLY SITTING UP EATING BREAKFAST WITH THE ASSISTANCE OF MICROBIOLOGY TECHNOLOGIST.
--- NOTE | 2019-04-12 09:00 | NUR ---
Case conferenced with RN, MATTHIEU for s/s assessment and final arrangements for d/c home today with hospice. Pt asleep and appears very comfortable resting in bed with hob elevated. I do not hear the heavy secretions with respiration that I did yesterday and RN reports he has been able to eat some breakfast today comfortably. I requested portable suction set up in the home for prn upper airway and oral suctioning along with home O2, bipap and bed, CM is already working on. CM to inform RN when transport time is arranged and d/c orders obtained from Dr. GARZON regime has worked well for control of pain, anxiety and air hunger and no IV pain meds or duragesic patch has needed to be used in past 24 hours.
--- NOTE | 2019-04-12 09:11 | NUR ---
PALLIATIVE CARE REQUESTED O2 BE TURNED DOWN TO 6L, FOR COMFORT. NO APPEARANCE OF AIR HUNGER. RESTING PEACEFULLY.
[2019-04-12] MEDS ORDERED: ATROPINE SULFATE2 ML SL (11:25)
[2019-04-12] MEDS ORDERED: FENT50TP TOP (11:26)
[2019-04-12] MEDS ORDERED: LORA2 PO (11:27)
[2019-04-12] MEDS ORDERED: OXYCODONE SL (11:28)
[2019-04-12] MEDS ORDERED: Transderm-Scop1 EACH TD (11:29)
--- NOTE | 2019-04-12 12:12 | NUR ---
patient discharged via [facility] with transporation. medicated prior to discharge. iv removed. no acute issues noted.
--- NOTE | 2019-04-21 11:27 | NUR ---
Late entry for 04/10/19 at 1452. This note was originally documented on the wrong pt chart. Meeting with Cydney and Simon this afternoon. He was able to get some rest this morning on the bipap and is more awake and wants the bipap off for our converstaion. Simon states his wishes are to go home with hospice. He states "I almost last night!" Discussed what services hospice offers and anwered questions. He currently has [facility] and would like to transition to [facility] services. Cydney is supportive of his choice and states she has all the equipment at home they need and feels that with the help of his son she will be able to care for him. He did ask if he would have a feeding tube. Explained the pros and cons to the feeding tube and discussed EOL and feedings. Also explained to him that he may not survive a surgical procedure given his currnet condition. Cydney asked how he could eat. Explained transitioning to comfort care in [facility] and having ST assist with diet suggestions if needed. He can eat for comfort knowing that the risk of aspiration remains. After discussing comfort care, Simon states this is what he would like to do. Cydney is supportive of that decision. They would like to stop IVF and antibiotics. Spoke with Ann Marie, capacity planner. She is working with [facility] on a discharge plan. Ann Marie notified that pt would like to have the bipap at home for comfort. Spoke with Dr. Jones and Janine Pearl, pharmacist and placed comfort care orders. Updated Cydney and Simon on plan for discharge home with [facility]. Explained that if he deteriorates quickly he may not be able to get home. He prefers to be home, however he acknowledged the possibility of not being able to get home. PC to follow for comfort care and symptom managment.
== END 2019-04-12 11:15 | disposition hospice, home (50) | DRG 177 ==
LOC: ER 21:17 → MEDS 04-09 02:24
PROVIDERS: Emergency Medicine; Family Medicine; ADMIT Internal Medicine
DX: J69.0 Pneumonitis due to inhalation of food and vomit (principal); G82.50 Quadriplegia, unspecified; J96.21 Acute and chronic respiratory failure with hypoxia; R64 Cachexia; J44.1 Chronic obstructive pulmonary disease with (acute) exacerbation; J96.11 Chronic respiratory failure with hypoxia; I25.10 Atherosclerotic heart disease of native coronary artery without angina pectoris; E03.9 Hypothyroidism, unspecified; E78.5 Hyperlipidemia, unspecified; F32.9 Major depressive disorder, single episode, unspecified; D64.9 Anemia, unspecified; D47.3 Essential (hemorrhagic) thrombocythemia
CPT/HCPCS: 31720; 36415; 71046; 80053; 80069; 83605; 84145; 85025; 85027; 87040; 93005; 93010; 94640; 94644; 94660; 94664; 94667; 94668; 94760; 94762; 96365; 96375; 98960; 99285-25; A9270-GY; J1100; J1650; J1956; J2060; J3010; J3370; J7030; J7050